=== PATIENT | female | born 1970 | race Caucasian/White ===

== ENCOUNTER → 2018-05-22 | Outpatient (CLI) | payer OTHER | LOC: FIMAGING 10:14 | PROVIDERS: ATTEND Emergency Medicine | DX: K80.20 Calculus of gallbladder without cholecystitis without obstruction (principal); R31.9 Hematuria, unspecified ==

== ENCOUNTER 2018-05-23 23:39 | Inpatient (IN) | payer OTHER ==
--- NOTE | 2018-05-24 00:25 | EDPHY ---
H & P Stated Complaint: bilateral flank pain since 05/20/18 Time Seen by Provider: 05/24/18 00:25 HPI/ROS: HPI CHIEF COMPLAINT: Bilateral low back pain and flank pain since Wednesday. HISTORY OF PRESENT ILLNESS: 48-year-old female, otherwise healthy no significant medical history does not take any daily medications presents emergency room with low back pain. Patient states this started on Wednesday she was talking on the phone sling onset low back pain that radiated into her abdomen. She states started in her back, radiated around to her bilateral lower abdomen. Was rather severe. The abdominal pain has resolved. She decided come the emergency room due to ongoing low back pain. She did go to urgent care and had blood work done and ultrasound. Was told that her ultrasound is unremarkable however was told that it for abdominal pain got worse she needed to present to the emergency room. Her ultrasound has been reviewed. It does show normal kidneys, however gallstones. No evidence of acute cholecystitis on the ultrasound. Patient denies vomiting, fever, denies chest pain or shortness of breath. Currently describes the low back pain is 6/10. Past Medical History: Denies medical history Past Surgical History: Denies surgical history Social History: Denies drugs alcohol tobacco. Family History: Noncontributory ROS REVIEW OF SYSTEMS: 10 Systems were reviewed and negative with the exception of the elements mentioned in the history of present illness. Exam Constitutional appears well nontoxic no acute distress triage nursing summary reviewed, vital signs reviewed, awake/alert. Eyes normal conjunctivae and sclera, EOMI, PERRLA. HENT normal inspection, atraumatic, moist mucus membranes, no epistaxis, neck supple/ no meningismus, no raccoon eyes. Respiratory clear to auscultation bilaterally, normal breath sounds, no respiratory distress, no wheezing. Cardiovascular rate normal, regular rhythm, no murmur, no edema, distal pulses normal. Gastrointestinal soft, non-tender, no rebound, no guarding, normal bowel sounds, no distension, no pulsatile mass. Genitourinary no significant CVA tenderness on exam. Mild posterior bilateral superior posterior iliac crest pain. Musculoskeletal no midline vertebral tenderness, full range of motion, no calf swelling, no tenderness of extremities, no meningismus, good pulses, neurovascularly intact. Skin pink, warm, & dry, no rash, skin atraumatic. Neurologic awake, alert and oriented x 3, AAOx3, moves all 4 extremities equally, motor intact, sensory intact, CN II-XII intact, normal cerebellar, normal vision, normal speech. Psychiatric normal mood/affect. Heme/Lymph/Immune no lymphadenopathy. Differential diagnosis includes but is not limited to and in no particular order : Bowel obstruction, appendicitis, gallbladder disease, diverticulitis, colitis , enteritis, perforated viscus, gastritis, GERD, esophagitis, urinary tract infection, pyelonephritis, kidney stones Medical Decision Making: Plan for this patient IV establishment IV fluid bolus , IV Dilaudid for pain control IV Zofran for nausea, CT scan abdomen pelvis with IV contrast, basic blood work, urinalysis re-evaluate. Re-evaluation: Source: Patient - Personal History LMP (Females 10-55): 1-7 Days Ago Current Tetanus Diphtheria and Acellular Pertussis (TDAP): Unsure - Medical/Surgical History Hx Asthma: No Hx Chronic Respiratory Disease: No Hx Diabetes: No Hx Cardiac Disease: No Hx Renal Disease: No Hx Cirrhosis: No Hx Alcoholism: No Hx HIV/AIDS: No Hx Splenectomy or Spleen Trauma: No - Social History Smoking Status: Never smoked Constitutional: Initial Vital Signs Temperature (C) 36.4 C 05/23/18 23:47 Heart Rate 75 05/23/18 23:47 Respiratory Rate 20 05/23/18 23:47 Blood Pressure 134/77 H 05/23/18 23:47 O2 Sat (%) 96 05/23/18 23:47 O2 Delivery Mode Room Air Allergies/Adverse Reactions: erythromycin lactobionate [From Erythrocin] Allergy (Intermediate, Verified 23:46) Rash Home Medications: Medication Instructions Recorded Acetaminophen [Tylenol 325mg (*)] 325 mg PO DAILY PRN 05/24/18 Ibuprofen [Motrin (*)] 200 mg PO DAILY PRN 05/24/18 diphenhydrAMINE [Benadryl 25 MG 25 mg PO DAILY PRN 05/24/18 (*)] Medical Decision Making - Diagnostics Imaging Results: Imaging Impressions Fluoroscopy 05/24/18 00:00 Impression: 1. Intraoperative fluoroscopy provided for an ERCP and sphincterotomy in this patient with suspected choledocholithiasis. 2. Cholelithiasis. - Data Points Laboratory Results: Laboratory Results 05/24/18 00:29 05/24/18 00:29 Medications Given: Hydromorphone HCl (Dilaudid) 0.2 - 0.4 mg IVP Q1H PRN PRN Reason: Severe pain Stop: 06/03/18 02:08 Last Admin: 05/24/18 18:23 Dose: 0.4 mg Hydromorphone HCl (Dilaudid Government Affairs Specialist) 6 mg IV PRN PRN; Protocol PRN Reason: Pain, Severe Unable To Take Po Stop: 06/03/18 18:13 Last Admin: 05/24/18 18:50 Dose: 6 mg Potassium Chloride/Dextrose/Sod Cl (D5w 1/2 Ns W/ 20 Kcl/L) 1,000 mls @ 100 mls /hr IV CONT CARLOS Stop: 11/20/18 20:59 Last Admin: 05/24/18 21:07 Dose: 1,000 mls Lorazepam (Ativan Injection) 1 - 2 mg IVP Q6H PRN PRN Reason: ANXIETY/INSOMNIA Stop: 11/20/18 18:15 Last Admin: 05/24/18 21:13 Dose: 1 mg Ondansetron HCl (Zofran) 4 mg IVP Q4HRS PRN PRN Reason: Nausea/Vomiting, Can't Take PO Stop: 11/20/18 02:08 Last Admin: 05/24/18 14:53 Dose: 4 mg Discontinued Medications Hydromorphone HCl (Dilaudid) 0.5 mg IVP EDNOW ONE Stop: 05/24/18 00:31 Last Admin: 05/24/18 00:38 Dose: 0.5 mg Hydromorphone HCl (Dilaudid) 0.2 - 0.4 mg IVP Q4HRS PRN PRN Reason: Severe pain Stop: 06/03/18 02:08 Last Admin: 05/24/18 14:55 Dose: 0.2 mg Hydromorphone HCl (Dilaudid) 0.4 mg IVP ONCE ONE Stop: 05/24/18 15:34 Last Admin: 05/24/18 15:49 Dose: 0.4 mg Sodium Chloride (Ns) 1,000 mls @ 100 mls/hr IV CONT CARLOS Stop: 11/20/18 02:14 Last Admin: 05/24/18 03:43 Dose: 1,000 mls Ampicillin Sodium/Sulbactam (Sodium 1.5 gm/ Sodium Chloride) 50 mls @ 200 mls/ hr IV EDNOW ONE PRN Reason: Protocol Stop: 05/24/18 09:32 Last Admin: 05/24/18 10:32 Dose: 50 mls Lactated Ringer's (Lr) 1,000 mls @ 0 mls/hr IV ONCE ONE PRN Reason: Per Protocol Stop: 05/24/18 09:54 Last Admin: 05/24/18 10:32 Dose: 1,000 mls Sodium Chloride (Ns) 1,000 mls @ 125 mls/hr IV CONT CARLOS Stop: 11/20/18 15:44 Last Admin: 05/24/18 15:49 Dose: 1,000 mls Indomethacin (Indocin Rectal) 100 mg MS ONCE ONE Stop: 05/24/18 12:31 Last Admin: 05/24/18 12:43 Dose: 100 mg Indomethacin (Indocin Rectal) 100 mg MS .STK-MED ONE Stop: 05/24/18 12:21 Last Admin: 05/24/18 12:20 Dose: 100 mg Iothalamate Meglumine (Conray) 50 ml IV .STK-MED ONE Stop: 05/24/18 12:16 Last Admin: 05/24/18 12:15 Dose: 50 ml Midazolam HCl (Versed) 2 mg IVP ONCALL ONE Stop: 05/24/18 10:22 Last Admin: 05/24/18 10:43 Dose: 2 mg Ondansetron HCl (Zofran) 4 mg IVP EDNOW ONE Stop: 05/24/18 00:31 Last Admin: 05/24/18 00:37 Dose: 4 mg Departure - Departure Disposition: [facility] Acute Clinical Impression: Abdominal pain Condition: Fair
[2018-05-24] MEDS ORDERED: ONDANSETRON 4 MG/2 ML VIAL IVP ONE (00:30)
[2018-05-24] MEDS ORDERED: HYDROmorphONE/DILAUDID 2 MG/ML INJ IVP ONE ×2 (00:30→15:33)
[2018-05-24] MEDS ORDERED: IOPAMIDOL (ISOVUE-300) 100 ML BTL ONE (00:42)
[2018-05-24 01:17] LABS: PLATELET COUNT 275 10^3/uL (150-400)
[2018-05-24] MEDS ORDERED: ONDANSETRON DISINTEGRATING 4 MG TAB PO PRN (02:09)
[2018-05-24] MEDS ORDERED: ACETAMINOPHEN 500 MG TAB PO PRN ×2 (02:09→11:17)
[2018-05-24] MEDS ORDERED: NS 1,000 ML IV SCH ×2 (02:15→15:45)
--- NOTE | 2018-05-24 03:39 | PDGENHP ---
History and Physical - Chief Complaint Flank pain - History of Present Illness 48 yo F w/ no significant PMHx presents with flank pain. The patient was in usual state of good health until 3 days ago when she developed severe, bilateral flank pain with radiation to her abdomen. She also felt diaphoretic and lightheaded. This discomfort lessened over the next few days but continued to be present throughout the weekend. Then, today, her discomfort increased in severity so she came to the ED. In the ED her laboratory work-up is notable for elevated bilirubin and LFTs. Her ultrasound reveals gallstones and dilated gallbladder and bile ducts. At the time of my evaluation she feels improved after pain medication. She denies fevers and chills. Case discussed with ED physician Dr. Martinez; records reviewed in EMR. History Information - Allergies/Home Medication List Allergies/Adverse Reactions: erythromycin lactobionate [From Erythrocin] Allergy (Intermediate, Verified 23:46) Rash Home Medications: Fluticasone Nasal [Flonase Nasal [place] (RX)] 2 sprays NASAL DAILY 08/28/12 [ Last Taken Unknown] I have personally reviewed and updated: family history, medical history - Past Medical History no pertinent PMH - Surgical History Reports: no pertinent surgical hx - Family History Positive for: cancer (Mother had breast cancer) - Social History Smoking Status: Never smoked Review of Systems Review of Systems: ROS: 10pt was reviewed & negative except for what was stated in HPI & below Physical Exam Physical Exam: Temp Pulse Resp BP Pulse Ox 36.4 C 64 16 129/85 H 93 05/23/18 23:47 05/24/18 01:52 05/24/18 01:52 05/24/18 01:52 05/24/18 01:52 Constitutional: no apparent distress, appears nourished Eyes: PERRL, EOMI Ears, Nose, Mouth, Throat: moist mucous membranes, no oral mucosal ulcers Cardiovascular: regular rate and rhythym, no murmur, rub, or gallop Gastrointestinal: normoactive bowel sounds, soft, non-tender abdomen, No fall' s sign Skin: warm, normal color Musculoskeletal: full muscle strength, no muscle tenderness Neurologic: AAOx3, CN II-XII Intact Psychiatric: interacting appropriately, not anxious Lab Data & Imaging Review 05/24/18 00:29 05/24/18 00:29 WBC 6.71 10^3/uL (3.80-9.50) 05/24/18 00:29 RBC 4.53 10^6/uL (4.18-5.33) 05/24/18 00:29 Hgb 13.6 g/dL (12.6-16.3) 05/24/18 00: Hct 40.7 % (38.0-47.0) 05/24/18 00: MCV 89.8 fL (81.5-99.8) 05/24/18 00:29 MCH 30.0 pg (27.9-34.1) 05/24/18 00: MCHC 33.4 g/dL (32.4-36.7) 05/24/18 00: RDW 11.7 % (11.5-15.2) 05/24/18 00:29 Plt Count 275 10^3/uL (150-400) 05/24/18 00: MPV 9.8 fL (8.7-11.7) 05/24/18 00:29 Neut % (Auto) 70.1 % (39.3-74.2) 05/24/18 00:29 Lymph % (Auto) 14.3 % (15.0-45.0) L 05/24/18 00:29 Kay % (Auto) 7.5 % (4.5-13.0) 05/24/18 00:29 Eos % (Auto) 6.9 % (0.6-7.6) 05/24/18 00: Baso % (Auto) 0.9 % (0.3-1.7) 05/24/18 00:29 Nucleat RBC Rel Count 0.0 % (0.0-0.2) 05/24/18 00:29 Absolute Neuts (auto) 4.71 10^3/uL (1.70-6.50) 05/24/18 00:29 Absolute Lymphs (auto) 0.96 10^3/uL (1.00-3.00) L 05/24/18 00:29 Absolute Monos (auto) 0.50 10^3/uL (0.30-0.80) 05/24/18 00:29 Absolute Eos (auto) 0.46 10^3/uL (0.03-0.40) H 05/24/18 00:29 Absolute Basos (auto) 0.06 10^3/uL (0.02-0.10) 05/24/18 00:29 Absolute Nucleated RBC 0.00 10^3/uL (0-0.01) 05/24/18 00:29 Immature Gran % 0.3 % (0.0-1.1) 05/24/18 00: Immature Gran # 0.02 10^3/uL (0.00-0.10) 05/24/18 00:29 Sodium 138 mEq/L (135-145) 05/24/18 00:29 Potassium 4.1 mEq/L (3.3-5.0) 05/24/18 00:29 Chloride 106 mEq/L (97-110) 05/24/18 00:29 Carbon Dioxide 21 mEq/l (22-31) L 05/24/18 00:29 Anion Gap 11 mEq/L (6-14) 05/24/18 00:29 BUN 14 mg/dL (7-23) 05/24/18 00:29 Creatinine 0.9 mg/dL (0.6-1.0) 05/24/18 00:29 Estimated GFR > 60 05/24/18 00:29 Glucose 106 mg/dL (70-100) H 05/24/18 00:29 Calcium 9.6 mg/dL (8.5-10.4) 05/24/18 00:29 Total Bilirubin 2.8 mg/dL (0.1-1.4) H 05/24/18 00:29 Conjugated Bilirubin 2.2 mg/dL (0.0-0.5) H 05/24/18 00:29 Unconjugated Bilirubin 0.6 mg/dL (0.0-1.1) 05/24/18 00:29 AST 624 IU/L (14-46) H 05/24/18 00:29 ALT 1236 IU/L (9-52) H 05/24/18 00:29 Alkaline Phosphatase 169 IU/L (38-126) H 05/24/18 00:29 Total Protein 7.0 g/dL (6.3-8.2) 05/24/18 00:29 Albumin 4.1 g/dL (3.5-5.0) 05/24/18 00:29 Lipase 108 IU/L (23-300) 05/24/18 00:29 Beta HCG, Qual NEGATIVE 05/24/18 00:29 Urine Color YELLOW 05/24/18 00:00 Urine Appearance CLEAR 05/24/18 00:00 Urine pH 5.0 (5.0-7.5) 05/24/18 00:00 Ur Specific [place] 1.012 (1.002-1.030) 05/24/18 00:00 Urine Protein NEGATIVE (NEGATIVE) 05/24/18 00:00 Urine Ketones 1+ (NEGATIVE) H 05/24/18 00:00 Urine Blood 1+ (NEGATIVE) H 05/24/18 00:00 Urine Nitrate NEGATIVE (NEGATIVE) 05/24/18 00:00 Urine Bilirubin NEGATIVE (NEGATIVE) 05/24/18 00:00 Urine Urobilinogen 4.0 EU (0.2-1.0) H 05/24/18 00:00 Ur Leukocyte Esterase NEGATIVE (NEGATIVE) 05/24/18 00:00 Urine RBC 1-3 /hpf (0-3) 05/24/18 00:00 Urine WBC 1-3 /hpf (0-3) 05/24/18 00:00 Ur Epithelial Cells TRACE /lpf (NONE-1+) 05/24/18 00:00 Urine Bacteria 1+ /hpf (NONE SEEN) H 05/24/18 00:00 Urine Mucus TRACE /lpf (NONE-1+) 05/24/18 00:00 Urine Glucose NEGATIVE (NEGATIVE) 05/24/18 00:00 Imaging Review: prelim CT AP 1. Dilated GB and bile ducts. No discernible CBD stone or panc head mass. Panc duct normal 2. Normal appendix. Constipation. 3. No hydro or renal stones d/w Dr. Martinez at 1:42 am. german eduardo Assessment & Plan Assessment: 48 yo F presents with abdominal pain, abnormal LFTs, and dilated bile ducts concerning for choledocholithiasis. Plan: 1. Suspected choledocholithiasis - Suspected on basis of elevated bilirubin, LFTs, and dilated gallbladder and bile ducts on CT. She has no signs of symptoms of infection currently, making cholecystitis and cholangitis less likely. - Maintain NPO - mIVF, pain control - GI consult in the morning to consider ERCP - Monitor CMP 2. Abnormal LFTs - Likely related to #1; pattern suggestive of biliary obstruction and hepatic inflammation. - Will check acute hep panel, APAP levels Diet - NPO pending GI evaluation Code - Full Ppx - SCDs Dispo - Admit under observation status
[2018-05-24] MEDS: HYDROmorphONE/DILAUDID 2 MG/ML INJ IVP PRN ×4 (03:49→18:23)
[2018-05-24 05:11] LABS: PLATELET COUNT 261 10^3/uL (150-400)
[2018-05-24] MEDS ORDERED: AMPICILLIN/SULBACTAM 1.5 GM in NS 50 ML IV ONE (09:18)
--- NOTE | 2018-05-24 09:20 | SOAPPROG ---
[facility] Progress Note Assessment/Plan: Assessment/Plan: Chart reviewed, pt. not seen yet, formal note to follow. LFTs decreased, but CT shows hyperenhancement in the cbd, so suspect continued cbd stone(s). - ERCP Thanks! 05/24/18 09:19 Objective: Vital Signs Temp Pulse Resp BP Pulse Ox 36.7 C 59 L 14 106/65 95 05/24/18 07:07 05/24/18 07:07 05/24/18 07:07 05/24/18 07:07 05/24/18 07:07 Laboratory Results 05/24/18 04:44 05/24/18 04:44 ICD10 Worksheet Patient Problems: Problems Problem Status Onset Abdominal pain Acute
[2018-05-24] MEDS ORDERED: D5W 1/2 NS W/ 20 KCl/L 1,000 ML IV SCH (09:30)
[2018-05-24] MEDS ORDERED: LR 1,000 ML IV ONE (09:53)
[2018-05-24] MEDS ORDERED: GLUCAGON HCL 1 MG VIAL ONE (10:07)
[2018-05-24] MEDS ORDERED: IOTHALAMATE MEG (CONRAY) 50 ML VIAL IV ONE ×2 (10:08→12:15)
[2018-05-24] MEDS ORDERED: MIDAZOLAM 2 MG/2 ML VIAL IVP ONE (10:21)
--- NOTE | 2018-05-24 10:21 | PDANEPAE ---
ANE History of Present Illness R flank pain for ERCP ANE Past Medical History - Cardiovascular History Hx Hypertension: No Hx Arrhythmias: No Hx Chest Pain: No Hx Coronary Artery / Peripheral Vascular Disease: No Hx CHF / Valvular Disease: No Hx Palpitations: No - Pulmonary History Hx COPD: No Hx Asthma/Reactive Airway Disease: No Hx Recent Upper Respiratory Infection: No Hx Oxygen in Use at Home: No Hx Sleep Apnea: No Sleep Apnea Screening Result - Last Documented: Negative - Endocrine History Hx Diabetes: No Hypothyroid: No Hyperthyroid: No Obesity: no - Chronic Pain History Chronic Pain: No ANE Review of Systems Review of systems is: negative Review of Systems: - Exercise capacity Exercise capacity: >=4 METS ANE Patient History - Allergies Allergies/Adverse Reactions: erythromycin lactobionate [From Erythrocin] Allergy (Intermediate, Verified 23:46) Rash - Home Medications Home medications: home medication list seen and reviewed Home Medications: Acetaminophen [Tylenol 325mg (*)] 325 mg PO DAILY PRN 05/24/18 [Last Taken Unknown] Ibuprofen [Motrin (*)] 200 mg PO DAILY PRN 05/24/18 [Last Taken Unknown] diphenhydrAMINE [Benadryl 25 MG (*)] 25 mg PO DAILY PRN 05/24/18 [Last Taken Unknown] - NPO status NPO Since - Liquids (Date): 05/24/18 NPO Since - Liquids (Time): 03:00 NPO Since - Solids (Date): 05/23/18 NPO Since - Solids (Time): 20:00 - Anes Hx Anes Hx: no prior problems - Smoking Hx Smoking Status: Never smoked ANE Labs/Vital Signs - Labs Result Diagrams: 05/24/18 04:44 05/24/18 04:44 - Vital Signs Blood Pressure: 144/90 Heart Rate: 70 Respiratory Rate: 18 O2 Sat (%): 97 Height: 170.18 cm Weight: 63.5 kg ANE Physical Exam - Airway Neck exam: FROM Mallampati Score: Class 1 Mouth exam: normal dental/mouth exam - Pulmonary Pulmonary: no respiratory distress - Cardiovascular Cardiovascular: regular rate and rhythym - ASA Status ASA Status: I ANE Anesthesia Plan Anesthesia Plan: general endotracheal anesthesia
[2018-05-24] MEDS ORDERED: fentaNYL 100 MCG/2 ML INJ ONE (10:31)
[2018-05-24] MEDS ORDERED: PROPOFOL 200 MG/20 ML VIAL ONE (10:32)
[2018-05-24] MEDS ORDERED: LIDOCAINE 2% 100 MG/5 ML SYR ONE (10:41)
[2018-05-24] MEDS ORDERED: ONDANSETRON 4 MG/2 ML VIAL ONE (10:41)
[2018-05-24] MEDS ORDERED: DEXAMETHASONE 4 MG/ML VIAL ONE (10:41)
[2018-05-24] MEDS ORDERED: ROCURONIUM 50 MG/5 ML VIAL ONE (10:41)
[2018-05-24] MEDS ORDERED: SUGAMMADEX SODIUM 200 MG/2 ML VIAL IVP ONE (10:41)
--- NOTE | 2018-05-24 11:00 | HOSPPROG ---
Hospitalist Progress Note Assessment/Plan: 48 yo F presents with abdominal pain, abnormal LFTs, and dilated bile ducts concerning for choledocholithiasis. Plan: 1. Suspected choledocholithiasis - Suspected on basis of elevated bilirubin, LFTs, and dilated gallbladder and bile ducts on CT. She has no signs of symptoms of infection currently, making cholecystitis and cholangitis less likely. - Maintain NPO - mIVF, pain control - GI to perform ERCP this AM - Monitor CMP 2. Abnormal LFTs - Likely related to #1; pattern suggestive of biliary obstruction and hepatic inflammation. - Will check acute hep panel, APAP levels Diet - NPO pending GI evaluation Code - Full Ppx - SCDs Dispo - Admit under observation status Subjective: Patient reports feeling very well s/p ERCP, denies abdominal pain Objective: Vital Signs Temp Pulse Resp BP Pulse Ox 36.8 C 70 18 144/90 H 97 05/24/18 10:07 05/24/18 10:26 05/24/18 10:26 05/24/18 10:26 05/24/18 10:26 Laboratory Results 05/24/18 04:44 05/24/18 04:44 - Physical Exam Constitutional: no apparent distress Eyes: PERRL Ears, Nose, Mouth, Throat: moist mucous membranes Cardiovascular: regular rate and rhythym Respiratory: clear to auscultation Gastrointestinal: soft, non-tender abdomen Genitourinary: no bladder tenderness Skin: warm Neurologic: AAOx3 Psychiatric: interacting appropriately ICD10 Worksheet Patient Problems: Problems Problem Status Onset Abdominal pain Acute
[2018-05-24] MEDS ORDERED: LABETALOL HCL 5 MG/ML 20 ML MDV IVP PRN (11:17)
[2018-05-24] MEDS ORDERED: oxyCODONE IR 5 MG TAB PO PRN (11:17)
[2018-05-24] MEDS ORDERED: ONDANSETRON 4 MG/2 ML VIAL IVP PRN (11:17)
[2018-05-24] MEDS ORDERED: HYDROCODONE/APAP 5/325 TAB PO PRN (11:17)
[2018-05-24] MEDS ORDERED: PROMETHAZINE HCL 25 MG/ML INJ IVP PRN (11:17)
[2018-05-24] MEDS ORDERED: LR 500 ML IV PRN (11:17)
[2018-05-24] MEDS ORDERED: NALOXONE HCL 0.4 MG/ML INJ IVP PRN ×2 (11:17→18:14)
[2018-05-24] MEDS ORDERED: ALBUTEROL 3 ML DEYVIAL IH PRN (11:17)
[2018-05-24] MEDS ORDERED: HYDROmorphONE/DILAUDID 2 MG/ML INJ IVP PRN (11:17)
[2018-05-24] MEDS ORDERED: fentaNYL 100 MCG/2 ML INJ IVP PRN (11:17)
--- NOTE | 2018-05-24 11:17 | POSTANESTH ---
Post Anesthetic Evaluation Cardiovascular Status: Normal, Stable Respiratory Status: Normal, Stable Level of Consciousness/Mental Status: Can Participate in Eval, Alert and Oriented Pain Control: Adequate, Prn Tx Ordered Nausea/Vomiting Control: Adequate, Prn Tx Ordered Complications Possibly Related to Anesthesia: None Noted
--- NOTE | 2018-05-24 11:25 | GCON ---
GI INPATIENT CONSULTATION DATE OF CONSULTATION: 05/24/2018 REFERRING PHYSICIAN: Xavier Espinoza MD REASON CONSULTATION REQUESTED: I was kindly requested to see Ashley by Dr. Xavier Espinoza in consultation for a chief complaint of abdominal pain. HISTORY OF PRESENT ILLNESS: She is a 48-year-old white female who presented with acute flank pain. This began about 3 days ago, severe in nature, bilateral with some radiation to her abdomen. With this, she felt diaphoretic and lightheaded. The pain lessened somewhat over the last several days, but then reoccurred, and she presented to the emergency department and was admitted. She denies fever, chills. She denies weight loss. She denies melena. PAST MEDICAL HISTORY: Otherwise unremarkable. ALLERGIES: Erythromycin. MEDICATIONS: 1. Outpatient medications include Flonase nasal spray. 2. Inpatient medications include intravenous fluids. SOCIAL HISTORY: She is . Her 's name is Roger, cell phone number is [phone]. FAMILY HISTORY: Negative for similar abdominal pain. REVIEW OF SYSTEMS: Positive pertinent review of systems as per my HPI. Otherwise, complete review of systems is negative. PHYSICAL EXAM: CONSTITUTIONAL: Nontoxic-appearing, pleasant woman. VITAL SIGNS: Stable. SKIN: Warm, dry. EYES: Pupils are equal, round and reactive to light and accommodation. EARS, NOSE, MOUTH, AND THROAT: Oropharynx without masses, moist mucosa. CARDIOVASCULAR: Normal S2, normal PMI. RESPIRATORY: Lungs are clear to auscultation and percussion anteriorly. ABDOMEN: Some normal bowel sounds, soft. NEUROLOGIC: Grossly nonfocal, cranial nerves grossly intact. PSYCHIATRIC: Orientation, insight appropriate. MUSCULOSKELETAL: Strength grossly normal throughout, normal station. DATA REVIEWED: Laboratories include a normal CBC. Urinalysis negative. Total bilirubin 2.8, now 1.6. AST, ALT decreased to 493 and 1029. Alkaline phosphatase decreased to 147. Beta HCG negative. Normal lipase. CT scan with a suggestion of hyper enhancement in the common bile duct, which could represent CBD stone. ASSESSMENT: Suspect choledocholithiasis, presenting somewhat atypically with flank pain. Although her liver tests are decreased today versus yesterday, they are still quite high, with a 3-day on and off description of symptoms, and finally, a CT scan which is suggestive of a continued CBD stone. PLAN: 1. ERCP. Further management is pending the above. 2. Will change her intravenous fluids to D5 1/2-normal saline with 20 mEq of potassium per liter bag to run at 100 mL an hour. 3. Unasyn x1. 4. Further management is pending the above. Thank you for allowing me to help in the care of this patient. /[id number]/MODL MTDD
[2018-05-24] MEDS ORDERED: INDOMETHACIN 50 MG SUPP PR ONE ×2 (12:20→12:30)
--- NOTE | 2018-05-24 12:43 | GIREPORT ---
[facility] - Endoscopy Department Patient Name: Ashley Novak Procedure Date: 05/24/2018 11:00 AM Patient Type: Inpatient Attending MD/ ER Physician: Fantasma Meza MD Procedure: ERCP Indications: Note dictated, consult appreciated. Suspected bile duct stone(s). Providers: Fantasma Meza MD, FACG Referring MD: [facility] Hospitalist service Medicines: Sedation Administered by an Anesthesia Professional, Indomethacin 100 m g LA Complications: No immediate complications. Description of Procedure: After obtaining informed consent, the scope was passed under direct vis ion. Throughout the procedure, the patient's blood pressure, pulse, and oxyg en saturations were monitored continuously. The Duodenalscope was introduc ed through the mouth, and advanced to the duodenum and used to cannulate t he bile duct. Findings: Grossly nl stomach, duodenum, ampulla. Partial pancreaticogram normal. Cholangiogram reveals a 11 mm cbd. One cbd stone, rectangular, 1 cm in size, seen. Multiple gallstones in the gallbladder. A 13 mm biliary sphincterotomy was made with a sphincterotome. There wa s no post-sphincterotomy bleeding. Unable to remove with 12 mm, 13.5 mm or 1 5 mm balloon. "Crushed" with a basket, and then pieces removed with balloon. Final balloon occlusive cholangiogram normal. Estimated Blood Loss: none. Post Op Diagnosis: - Moderately large cbd stone, as above. "Crushed," and all pieces remov ed. Recommendation: - feed - buffcap IV - recommend lap debbie I will sign off; we will arrange repeat LFTs in about one month, to ruth e sure they normalize, as I suspect. Else, please call if we can be of fu rther help [phone]). Thank you for allowing me to help in the management of this patient. Attending Participation: I personally performed the entire procedure. Susana Meek MD Fantasma Meza MD 05/24/2018 12:43:11 PM This report has been signed electronicallyPeter MD Susana Number of Addenda: 0 Note Initiated On: 05/24/2018 11:00 AM [email or web address]
--- NOTE | 2018-05-24 14:34 | ASMTCMCOM ---
CM Note CM Note Notes: Pt is a 48 y/o female admitted for flank pain. Pt had a choledocholithiasis. Pt will most likely d/c independent when medically stable. No therapies ordered at this time. CM available for changes. Plan: Independent Date Signed: 05/24/2018 02:33 PM Electronically Signed By:CHRISSY Devine
[2018-05-24] MEDS: ONDANSETRON 4 MG/2 ML VIAL IVP PRN (14:53)
[2018-05-24] MEDS: HYDROmorphONE/DILAUDID 6 MG/30 ML PCA IV PRN (18:50)
--- NOTE | 2018-05-24 20:51 | SOAPPROG ---
[facility] Progress Note Assessment/Plan: Assessment/Plan: PostERCP pancreatitis, with a lipase around 6K. With only at this level, suspect should hopefully resolve quickly. 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 Recommend surgical consult, for eventual lap debbie. Case d/w hospitalist, pt. and her . 05/24/18 20:49 Objective: Vital Signs Temp Pulse Resp BP Pulse Ox 36.4 C 92 16 106/68 92 05/24/18 20:35 05/24/18 20:35 05/24/18 20:35 05/24/18 20:35 05/24/18 20:35 Laboratory Results 05/24/18 04:44 05/24/18 04:44 05/23/18 05/24/18 05/25/18 05:59 05:59 05:59 Intake Total 120 Output Total 5 Balance 115 ICD10 Worksheet Patient Problems: Problems Problem Status Onset Abdominal pain Acute
[2018-05-24] MEDS: D5W 1/2 NS W/ 20 KCl/L 1,000 ML IV SCH (21:07)
[2018-05-24] MEDS: LORazepam 2 MG/ML INJ IVP PRN (21:13)
[2018-05-25] MEDS: HYDROmorphONE/DILAUDID 6 MG/30 ML PCA IV PRN ×3 (03:26→18:34)
[2018-05-25] MEDS: ONDANSETRON 4 MG/2 ML VIAL IVP PRN ×3 (03:32→16:53)
[2018-05-25] MEDS: D5W 1/2 NS W/ 20 KCl/L 1,000 ML IV SCH ×2 (07:24→20:04)
--- NOTE | 2018-05-25 10:04 | SOAPPROG ---
SOAP Progress Note Assessment/Plan: Assessment/Plan: PostERCP pancreatitis. Lipase higher today, but suspect may be "trailing behind ," as clinically pt. doing somewhat better. - cont. NPO except for today; suspect we can begin clears tomorrow - recheck lipase in AM - Recommend surgical consult today, for eventual lap debbie. 05/25/18 10:02 Subjective: cc: pancreatitis Pain somewhat better today; pain meds helps. Ativan helped with sleep. No rigors, chills, sweats, vomiting. Objective: Vital Signs Temp Pulse Resp BP Pulse Ox 36.8 C 112 H 22 H 112/74 92 05/25/18 09:11 05/25/18 09:11 05/25/18 09:11 05/25/18 09:11 05/25/18 09:11 Laboratory Results 05/24/18 04:44 05/25/18 04:33 05/24/18 05/25/18 05/26/18 05:59 05:59 05:59 Intake Total 120 Output Total 5 Balance 115 Lipase increased to 13K Physical Exam - Physical Exam General Appearance: WD/WN, alert, no apparent distress EENT: PERRL/EOMI, normal ENT inspection, pharynx normal, TMs normal Neck: non-tender, full range of motion, supple, normal inspection Respiratory: chest non-tender, lungs clear, normal breath sounds Cardiac/Chest: normal peripheral pulses, regular rate, rhythm Peripheral Pulses: 2+: carotid (R), carotid (L), femoral (R), femoral (L), dorsalis-pedis (R), dorsalis-pedis (L) Abdomen: normal bowel sounds, soft, No non-tender (moderate epigastric tenderness.) Pelvic Exam: deferred Rectal: deferred Back: Normal inspection Skin: normal color, warm/dry Lymphatic: no adenopathy Extremities: normal range of motion, non-tender, normal inspection, normal capillary refill Neuro/Psych: no motor/sensory deficits, alert, normal mood/affect, oriented x 3 ICD10 Worksheet Patient Problems: Problems Problem Status Onset Abdominal pain Acute
--- NOTE | 2018-05-25 10:24 | HOSPPROG ---
Hospitalist Progress Note Assessment/Plan: 48 yo F presents with abdominal pain, abnormal LFTs, and dilated bile ducts concerning for choledocholithiasis. Plan: 1. Choledocholithiasis - S/p ERCP by GI on 05/25 with removal of large gallstone - LFTs continue to trend downwards - Consulting surgery today for lap-debbie evaluation - Continue to monitor CMP 2. Post-ERCP Pancreatitis - Patient had acute onset of severe abdominal pain, nausea after ERCP yesterday - Initial lipase after ERCP 6,000, trended up to 13,200 this AM - Continue IVF, IV pain control - Discussed case with Dr. Meza after procedure yesterday, he added SHINGLER for pain - Continue to monitor lipase 3. Transaminitis - 2/2 to cholelithiasis - Management as above Diet - NPO Code - Full Ppx - SCDs Dispo - Pending clinical course Subjective: Patient reports moderate pain this morning in abdomen Objective: Vital Signs Temp Pulse Resp BP Pulse Ox 36.8 C 112 H 22 H 112/74 92 05/25/18 09:11 05/25/18 09:11 05/25/18 09:11 05/25/18 09:11 05/25/18 09:11 Laboratory Results 05/24/18 04:44 05/25/18 04:33 05/24/18 05/25/18 05/26/18 05:59 05:59 05:59 Intake Total 120 Output Total 5 Balance 115 - Physical Exam Constitutional: uncomfortable Eyes: PERRL Ears, Nose, Mouth, Throat: moist mucous membranes Cardiovascular: tachycardia Respiratory: no respiratory distress, clear to auscultation Gastrointestinal: tenderness, No guarding, No rebound, No distension Genitourinary: no bladder tenderness Skin: warm Neurologic: AAOx3 Psychiatric: interacting appropriately ICD10 Worksheet Patient Problems: Problems Problem Status Onset Abdominal pain Acute
--- NOTE | 2018-05-25 19:46 | SOAPPROG ---
CLARISSA Progress Note Assessment/Plan: Assessment: FEELING BETTER AFTER COMMON DUCT STONE REMOVAL BUT NOW WITH BOWEL PANCREATITIS ABDOMEN SOFT/NONICTERIC/CHEST CLEAR RISKS AND OPTIONS FULLY DISCUSSED Plan: LAP CHOLY ON WEDNESDAY OF HER NUMBERS ARE IMPROVING 05/25/18 19:45 Objective: Vital Signs Temp Pulse Resp BP Pulse Ox 37.0 C 93 16 123/81 H 94 05/25/18 19:03 05/25/18 19:03 05/25/18 19:03 05/25/18 19:03 05/25/18 19:03 Laboratory Results 05/24/18 04:44 05/25/18 04:33 05/24/18 05/25/18 05/26/18 05:59 05:59 05:59 Intake Total 120 990 Output Total 5 Balance 115 990 ICD10 Worksheet Patient Problems: Problems Problem Status Onset Abdominal pain Acute
--- NOTE | 2018-05-25 20:25 | PDMN ---
Medical Necessity Medical necessity: Change to inpt as of 05/25/18 @ 11:21. Pt meets inpt criteria per MD order and MCG M-250, Pancreatitis, 2 days. 48 y/o admitted w/ choledocholithiasis, s/p ERCP w/removal of large gall stone, post-ERCP pancreatitis w/acute onset of severe abdominal pain/nausea and lipase elevating to 13,200. IV Dilaudid CARE ANALYST for pain, IVF, lap debbie pending. Est LOS>2MN for management of above.
[2018-05-25] MEDS: LORazepam 2 MG/ML INJ IVP PRN (21:21)
[2018-05-26] MEDS: D5W 1/2 NS W/ 20 KCl/L 1,000 ML IV SCH (05:59)
[2018-05-26] MEDS: HYDROmorphONE/DILAUDID 6 MG/30 ML PCA IV PRN ×2 (06:00→17:56)
--- NOTE | 2018-05-26 09:36 | SOAPPROG ---
SOAP Progress Note Assessment/Plan: Assessment/Plan: PostERCP pancreatitis. Lipase improved, and clinically better. Still quite tender. - clears - buffcap IV - recommend switching to p.o. pain meds tomorrow; as per hospitalist. - recheck lipase in AM 05/26/18 09:34 Subjective: cc: pancreatitis Pain better. Able to move around more. Not using dilaudid GATE SERVICES SUPERVISOR as much. No rigors, chills, sweats. Objective: Vital Signs Temp Pulse Resp BP Pulse Ox 37.0 C 106 H 16 113/82 H 90 L 05/26/18 07:44 05/26/18 07:44 05/26/18 07:44 05/26/18 07:44 05/26/18 07:44 Laboratory Results 05/26/18 04:34 05/26/18 04:34 05/25/18 05/26/18 05/27/18 05:59 05:59 05:59 Intake Total 1965 Balance 1965 lipase 8K Physical Exam - Physical Exam General Appearance: WD/WN, alert, no apparent distress EENT: PERRL/EOMI, normal ENT inspection, pharynx normal, TMs normal Neck: non-tender, full range of motion, supple, normal inspection Respiratory: chest non-tender, lungs clear, normal breath sounds Cardiac/Chest: normal peripheral pulses, regular rate, rhythm Peripheral Pulses: 2+: carotid (R), carotid (L), femoral (R), femoral (L), dorsalis-pedis (R), dorsalis-pedis (L) Abdomen: normal bowel sounds, soft, No non-tender (moderate epigastric tenderness) Pelvic Exam: deferred Rectal: deferred Back: Normal inspection Skin: normal color, warm/dry Lymphatic: no adenopathy Extremities: normal range of motion, non-tender, normal inspection, normal capillary refill Neuro/Psych: no motor/sensory deficits, alert, normal mood/affect, oriented x 3 ICD10 Worksheet Patient Problems: Problems Problem Status Onset Abdominal pain Acute
--- NOTE | 2018-05-26 10:29 | SOAPPROG ---
SOAP Progress Note Assessment/Plan: Assessment/plan: 48 y/o F admitted with choledocholithiasis S/p ERCP with stone retrieval Pancreatitis after ERCP. Lipase trending down. LFTs trending down. Plan for lap debbie tomorrow afternoon. Can postpone if pt wishes. S: Still having pain, but improved with change director. Feels weak, unsure if she wants to undergo surgery tomorrow. O: Alert Afebrile RRR No increased WOB Abdomen soft, ttp 05/26/18 10:26 Objective: Vital Signs Temp Pulse Resp BP Pulse Ox 37.0 C 106 H 16 113/82 H 90 L 05/26/18 07:44 05/26/18 07:44 05/26/18 07:44 05/26/18 07:44 05/26/18 07:44 Laboratory Results 05/26/18 04:34 05/26/18 04:34 05/25/18 05/26/18 05/27/18 05:59 05:59 05:59 Intake Total 1965 Balance 1965 ICD10 Worksheet Patient Problems: Problems Problem Status Onset Abdominal pain Acute
--- NOTE | 2018-05-26 12:05 | HOSPPROG ---
Hospitalist Progress Note Assessment/Plan: 48 yo F presents with abdominal pain, abnormal LFTs, and dilated bile ducts concerning for choledocholithiasis. Plan: 1. Choledocholithiasis - S/p ERCP by GI on 05/25 with removal of large gallstone - LFTs continue to trend downwards - Consulted surgery for lap-debbie evaluation, plan for tomorrow afternoon, however patient still deciding if she would like to proceed as IP vs. OP - Continue to monitor CMP 2. Post-ERCP Pancreatitis - Patient had acute onset of severe abdominal pain, nausea after ERCP yesterday - Initial lipase after ERCP 6,000, trended up to 13,200 yesterday, 8,123 today - D/c IVF, IV pain control- continue CONTACT CLERK for today, transition to IVP/PO tomorrow - Continue to monitor lipase qAM - Advance diet to clears as tolerated 3. Transaminitis - 2/2 to cholelithiasis - Management as above Diet - CLD, advance as tolerated Code - Full Ppx - SCDs Dispo - Pending clinical course, patient deciding if she should pursue lap- debbie IP vs. OP, states she feels weak and unsure if she can tolerate Subjective: Patient reports abdominal pain is improving Objective: Vital Signs Temp Pulse Resp BP Pulse Ox 37.7 C 106 H 16 117/71 93 05/26/18 11:20 05/26/18 11:20 05/26/18 11:20 05/26/18 11:20 05/26/18 11:20 Laboratory Results 05/26/18 04:34 05/26/18 04:34 05/25/18 05/26/18 05/27/18 05:59 05:59 05:59 Intake Total 1965 Balance 1964 - Physical Exam Constitutional: no apparent distress Eyes: PERRL Ears, Nose, Mouth, Throat: moist mucous membranes Cardiovascular: regular rate and rhythym Respiratory: no respiratory distress Gastrointestinal: tenderness Skin: warm Musculoskeletal: full muscle strength Neurologic: AAOx3 Psychiatric: interacting appropriately ICD10 Worksheet Patient Problems: Problems Problem Status Onset Abdominal pain Acute
[2018-05-26] MEDS: ONDANSETRON 4 MG/2 ML VIAL IVP PRN (14:32)
[2018-05-26] MEDS: IBUPROFEN 600 MG TAB PO PRN (19:43)
[2018-05-26] MEDS: LORazepam 2 MG/ML INJ IVP PRN (23:23)
[2018-05-27] MEDS: ONDANSETRON 4 MG/2 ML VIAL IVP PRN ×2 (04:38→11:09)
[2018-05-27] MEDS: D5W 1/2 NS W/ 20 KCl/L 1,000 ML IV SCH ×2 (05:41→17:43)
--- NOTE | 2018-05-27 09:22 | SOAPPROG ---
CLARISSA Progress Note Assessment/Plan: Assessment/plan: 48 y/o F admitted with choledocholithiasis S/p ERCP with stone retrieval Pancreatitis after ERCP. Lipase trending down. LFTs trending down. Plan for lap debbie tomorrow afternoon. Can postpone if pt wishes. S: Still having pain, but improved with recruiting and selection consultant. Feels weak, unsure if she wants to undergo surgery tomorrow. O: Alert Afebrile RRR No increased WOB Abdomen soft, ttp 05/26/18 10:26 Subjective: Still having significant abdominal and back pain, although lipase is much improved. Does not want surgery today. Dr. Nguyen will be out of town starting Wednesday afternoon. Can do surgery tomorrow or Wednesday morning, or pt can follow up with us as an outpt. Objective: Vital Signs Temp Pulse Resp BP Pulse Ox 36.6 C 103 H 22 H 118/74 95 05/27/18 07:37 05/27/18 07:37 05/27/18 07:37 05/27/18 07:37 05/27/18 07:37 Laboratory Results 05/26/18 04:34 05/26/18 04:34 05/26/18 05/27/18 05/28/18 05:59 05:59 05:59 Intake Total 1965 Balance 1965 ICD10 Worksheet Patient Problems: Problems Problem Status Onset Abdominal pain Acute
[2018-05-27] MEDS ORDERED: cefOXitin SODIUM 2 GM in NS 100 ML IV ONE (11:00)
--- NOTE | 2018-05-27 12:42 | ASMTCMCOM ---
CM Note CM Note Notes: Pt continues with abdominal pain, she had an ERCP and gallstone removal. She then developed pancreatitis, needs lap debbie but pt still unsure whether to do it here or as outpt. Pt is otherwise independent, will dc home w/support of . CM available for any changes. DC Plan: Indepedent Date Signed: 05/27/2018 12:40 PM Electronically Signed By:Munira Moctezuma RN
[2018-05-27] MEDS ORDERED: ZOLPIDEM TARTRATE 5 MG TAB PO PRN (12:46)
--- NOTE | 2018-05-27 12:55 | SOAPPROG ---
SOAP Progress Note Assessment/Plan: Assessment/Plan: 1. PostERCP pancreatitis. Lipase improving, but clinically, pt. still in the midst of moderately-severe pancreatitis, with continued tenderness to light palpation, back pain. 2. Development of ileus, from the above, which again shows continued moderately -severe disease. 3. Some muscular back pain, after a "twist" yesterday getting out of bed 4. Bad reaction to ativan, with hallucinations, etc. - revert back to more conservation care: NPO except, IV fluids - time; suspect she will be in the hospital at least until Wednesday or Wednesday - no lap debbie, until pancreatitis totally resolved (suspect will be a separate hospitalization, in several weeks or a month, which should be safe, as her cbd is now cleared) - d/c ativan > she requests ambien prn insomnia - better pain control with dilaudid TALLIER; as per hospitalist - d/c O2 (bothers her), unless absolutely necessary - increase prn zofran - decisions regarding her "pulled back," such as muscle relaxers, as per hospitalist 05/27/18 12:49 Subjective: cc: pancreatitis Pain continues, no better, and includes the back. Abdomen distended, with decreased passage gas, no b.m.s. Ativan made her too "loopy." Some musculoskeletal back pain, after "twisting" it getting out of bed yesterday. Nausea (most likely related to ileus). O2 mask bothers her; nasal cannula made her nose "inflammed." Objective: Vital Signs Temp Pulse Resp BP Pulse Ox 37.3 C 106 H 22 H 106/75 97 05/27/18 11:35 05/27/18 11:35 05/27/18 11:35 05/27/18 11:35 05/27/18 11:35 Laboratory Results 05/26/18 04:34 05/26/18 04:34 05/26/18 05/27/18 05/28/18 05:59 05:59 05:59 Intake Total 1964 1657 Balance 1964 1656 lipase 1800 Physical Exam - Physical Exam General Appearance: WD/WN, alert, no apparent distress EENT: PERRL/EOMI, normal ENT inspection, pharynx normal, TMs normal Neck: non-tender, full range of motion, supple, normal inspection Respiratory: chest non-tender, lungs clear, normal breath sounds Cardiac/Chest: normal peripheral pulses, regular rate, rhythm Peripheral Pulses: 2+: carotid (R), carotid (L), femoral (R), femoral (L), dorsalis-pedis (R), dorsalis-pedis (L) Abdomen: distended, No normal bowel sounds, No non-tender (moderate severe epigastric tenderness) Pelvic Exam: deferred Rectal: deferred Back: Normal inspection Skin: normal color, warm/dry Lymphatic: no adenopathy Extremities: normal range of motion, non-tender, normal inspection, normal capillary refill Neuro/Psych: no motor/sensory deficits, alert, normal mood/affect, oriented x 3 ICD10 Worksheet Patient Problems: Problems Problem Status Onset Abdominal pain Acute
--- NOTE | 2018-05-27 15:24 | HOSPPROG ---
Hospitalist Progress Note Assessment/Plan: DIAGNOSES: * acute postprocedural pancreatitis after ERCP * choledocholithiasis with a large stone removed by ERCP * pain management issues PLANS: * Continue IV hydration * Continue pain management, currently doing well with BATH ATTENDANT pump * Antiemetics as needed * Follow for any signs of fever or other complications Overall she is improving, however she remains with moderately severe pain requiring BATH ATTENDANT pump, tachycardia, slowly resolving blood test values. Would continue symptomatic treatment and supportive care at this time. At this point I would side with Dr. Meza in advising probable delay before cholecystectomy. SUBJECTIVE: Patient states she is finally feeling better relief of pain currently on BATH ATTENDANT pump Did get some sleep last night and during the day today No nausea at this moment, no chills OBJECTIVE Vitals reviewed: Remains somewhat tachycardic, otherwise Stable without fever Exam: Somewhat sedated with her BATH ATTENDANT and was actually a little bit hard to arouse but she does arouse and talk to me skin warm dry color ok resps not labored but appear adequate, with adequate oxygenation lungs clear BSs heart regular abd remains tender and a bit distended, bowel sounds present limbs warm, no edema iv site ok Lab data: Lipase is improved at 1816 today Objective: Vital Signs Temp Pulse Resp BP Pulse Ox 37.3 C 106 H 22 H 106/75 97 05/27/18 11:35 05/27/18 11:35 05/27/18 11:35 05/27/18 11:35 05/27/18 11:35 Laboratory Results 05/26/18 04:34 05/26/18 04:34 05/26/18 05/27/18 05/28/18 06:59 06:59 06:59 Intake Total 1964 1657 Balance 1965 1657 ICD10 Worksheet Patient Problems: Problems Problem Status Onset Abdominal pain Acute
[2018-05-27] MEDS: HYDROmorphONE/DILAUDID 6 MG/30 ML PCA IV PRN (17:25)
[2018-05-27] MEDS: CYCLOBENZAPRINE 10 MG TAB PO SCH ×2 (22:56→22:57)
[2018-05-27] MEDS: ZOLPIDEM TARTRATE 5 MG TAB PO PRN (22:56)
[2018-05-28] MEDS: CYCLOBENZAPRINE 10 MG TAB PO SCH ×4 (00:49→20:59)
[2018-05-28] MEDS: D5W 1/2 NS W/ 20 KCl/L 1,000 ML IV SCH ×2 (04:57→16:32)
[2018-05-28 04:59] LABS: PLATELET COUNT 206 10^3/uL (150-400)
[2018-05-28] MEDS: HYDROmorphONE/DILAUDID 6 MG/30 ML PCA IV PRN ×3 (05:05→22:20)
[2018-05-28] MEDS: ONDANSETRON 4 MG/2 ML VIAL IVP PRN ×2 (10:23→20:59)
--- NOTE | 2018-05-28 11:09 | SOAPPROG ---
CLARISSA Progress Note Assessment/Plan: Assessment:Plan: 1) pancreatitis - improving but still with pain and decreased bs/ileus, lipase down, using SENIOR LANDSCAPE ARCHITECT for pain control 2) RUQ pain - check sonogram, start abx/Invanz for possible cholecystitis, if sonogram looks fine, then no surgery today 3) Pulm - egophony in RLL - CXR PA and Lat, and incentive spirometer 4) pain - SENIOR LANDSCAPE ARCHITECT - unclear if her RUQ pain is from her pancreatitis or her GB discussed with Doctors Hayes Meza and Patrick will follow 05/28/18 11:11 Subjective: CC- pancreatitis - abdo pain, RUQ pain, ileus, egophony and new cough pt says some of her abdo pain is better but more now in RUQ new cough - non productive Objective: Vital Signs Temp Pulse Resp BP Pulse Ox 36.9 C 108 H 16 111/69 86 L 05/28/18 07:44 05/28/18 07:44 05/28/18 07:44 05/28/18 07:44 05/28/18 07:44 Laboratory Results 05/28/18 04:39 05/28/18 04:39 05/27/18 05/28/18 05/29/18 05:59 05:59 05:59 Intake Total 1956 Balance 1956 A+Ox3 CTA left, egophony right base S1S2 tachy very decreased BS, distended but soft, tenderness RUQ >> epi > left sided, + guarding RUQ Laboratory Tests 05/25/18 05/26/18 05/26/18 04:33 04:34 04:34 WBC 9.44 AST 224 H 92 H ALT 749 H 469 H Lipase 27535 H 8123 H 05/27/18 05/28/18 05/28/18 04:30 04:39 04:39 WBC 12.18 H AST 28 ALT 207 H Lipase 1816 H 482 H ICD10 Worksheet Patient Problems: Problems Problem Status Onset Abdominal pain Acute
[2018-05-28] MEDS: ERTAPENEM 1 GM in NS 100 ML IV SCH (12:19)
--- NOTE | 2018-05-28 12:46 | SOAPPROG ---
CLARISSA Progress Note Assessment/Plan: Assessment: FEELING BETTER AFTER COMMON DUCT STONE REMOVAL BUT NOW WITH BOWEL PANCREATITIS ABDOMEN SOFT/NONICTERIC/CHEST CLEAR RISKS AND OPTIONS FULLY DISCUSSED Plan: LAP CHOLY ON WEDNESDAY OF HER NUMBERS ARE IMPROVING 05/25/18 19:45 05/28/18 12:43 AFEBRILE BUT ACCESS SERVICES LIBRARIAN IN THE RIGHT UPPER QUADRANT/OVERALL IMPROVED/ NONICTERIC/DECREASED BREATH SOUNDS IN THE RIGHT LOWER LOBE LIPASE DOWN TO 400 AND LFTS ESSENTIALLY BACK TO NORMAL/ WBC OKAY RISKS AND OPTIONS FULLY DISCUSSED WITH THE PATIENT AND HER AT THIS POINT WOULD PROBABLY RECOMMEND DELAYED LAP CHOLY SINCE SHE IS 1 WEEK INTO PAIN AND GALLBLADDER APPEARS MARKEDLY THICKENED ON ULTRASOUND BUT THAT REPORT IS PENDING NORMALLY WE WOULD DO LAP CHOLY BEFORE DISCHARGE AFTER GALLSTONE PANCREATITIS BUT IN HER CASE THE GALLBLADDER SEEMS TO BE QUITE SICK FOR PROLONGED TIME AND MAY REQUIRE COOL DOWN ON ANTIBIOTICS Objective: Vital Signs Temp Pulse Resp BP Pulse Ox 36.9 C 108 H 16 111/69 86 L 05/28/18 07:44 05/28/18 07:44 05/28/18 07:44 05/28/18 07:44 05/28/18 07:44 Laboratory Results 05/28/18 04:39 05/28/18 04:39 05/27/18 05/28/18 05/29/18 05:59 05:59 05:59 Intake Total 1956 Balance 195 ICD10 Worksheet Patient Problems: Problems Problem Status Onset Abdominal pain Acute
--- NOTE | 2018-05-28 15:10 | HOSPPROG ---
Hospitalist Progress Note Assessment/Plan: DIAGNOSES: * acute postprocedural pancreatitis after ERCP * choledocholithiasis with a large stone removed by ERCP * pain management issues * acute hypoxemic respiratory failure * I suspect this is due to pleural effusion and atelectasis from her pancreatitis but and waiting on chest x-ray Overall at this point without fever or definite findings of cholecystitis on ultrasound, I suspect that her pain is mostly due to pancreatitis at this point. I have ever seen significant cholecystitis within normal ultrasound on occasion. Will see what her x-ray looks like to determine cause of respiratory failure but I suspect it is all inflammatory fluid accumulation and atelectasis. Other than hypoxemia she does not have any organ failure or fevers and so I think overall she is really fairly stable with slow improvement , however some concern about her ongoing tachycardia The patient and her are fairly anxious about her situation and have had many questions. I reviewed her situation with them in detail and answered her questions to the best I can in have reviewed the case today with Dr. Carr. Dr. Carr reviewed with Dr. Meza and they were recommending delay before cholecystectomy but they will review further with Dr. Nguyen. PLANS: * Chest x-ray has been ordered and I am waiting for this to be done, will review that * Continue IV hydration * Continue pain management, currently doing well with GIN INSPECTOR pump * Antiemetics as needed * Follow for any signs of fever or other complications Overall she is improving, however she remains with moderately severe pain requiring GIN INSPECTOR pump, tachycardia, slowly resolving blood test values. Would continue symptomatic treatment and supportive care at this time. At this point I would side with Dr. Meza in advising probable delay before cholecystectomy. SUBJECTIVE: Ongoing epigastric and mid back pain with intermittent nausea, still using IV pain and nausea medicines Some dyspnea today including exertional dyspnea without chest pain or cough No chills or sweats OBJECTIVE Vitals reviewed: Remains somewhat tachycardic, otherwise Stable without fever Oxygen now to 5-6 L Exam: Notably more alert today compared to my visit yesterday skin warm dry color ok no jaundice resps slightly tachypneic but not labored, using more oxygen today lungs significant egophony particularly at right lung base heart regular abd remains tender and a bit distended, bowel sounds present limbs warm, trace ankle edema iv site ok Lab data: White count up to 12,000 hemoglobin down to 10 today Some improvement in liver enzymes and lipase today Imaging: Abdominal ultrasound done showing no evidence of stones in the gallbladder or ducts, no thickening of the gallbladder wall or pericholecystic fluid, though there is fluid around the pancreas consistent with pancreatitis without evidence of pseudocyst Objective: Vital Signs Temp Pulse Resp BP Pulse Ox 36.8 C 114 H 16 133/80 H 95 05/28/18 12:00 05/28/18 12:00 05/28/18 12:00 05/28/18 12:00 05/28/18 12:00 Laboratory Results 05/28/18 04:39 05/28/18 04:39 05/27/18 05/28/18 05/29/18 06:59 06:59 06:59 Intake Total 1957 Balance 195 - Time Spent With Patient Time Spent with Patient: greater than 35 minutes Time Spent with Patient: Greater than 35 minutes spent on this patients care, greater than 50% of time spent counseling, educating, and coordinating care regarding the above mentioned plan. ICD10 Worksheet Patient Problems: Problems Problem Status Onset Abdominal pain Acute
--- NOTE | 2018-05-28 15:51 | SOAPPROG ---
CLARISSA Progress Note Assessment/Plan: Social Note Assessment/Plan: Pain somewhat better today, with lipase down to the 400s. Dr. Grant's US report is incorrect; there are multiple gallstones in the gallbladder (he did an addendum). What is not incorrect is that the gallbladder looks good, without pericholecystic fluid, thickened wall, etc. What brought the pt. into the hospital was symptomatic choledocholithiasis, which was taken care of with ERCP. Now, she is still in the midst of moderately severe, but improving, post-ERCP pancreatitis, with secondary ileus. Her pain is in the same location and of the same type as the last few days, bilateral upper quadrants, about equally, but with the worse tenderness in the epigastric area. With this, and the US report, I do not think she has symptomatic gallbladder disease at this time. - would not do lap debbie, in the midst of continued moderately severe pancreatitis; this can be done intervally, in 2 - 4 weeks, after she's recovered. - clinically, she seems to be dragging a day or two behind her numbers. With her lipase now in the 400s, suspect she will be much better tomorrow or Wednesday. - will allow sips of cranberry juice (her wish) Case d/w the pt., Roger (her ) 05/28/18 15:44 Objective: Vital Signs Temp Pulse Resp BP Pulse Ox 36.8 C 114 H 16 133/80 H 95 05/28/18 12:00 05/28/18 12:00 05/28/18 12:00 05/28/18 12:00 05/28/18 12:00 Laboratory Results 05/28/18 04:39 05/28/18 04:39 05/27/18 05/28/18 05/29/18 05:59 05:59 05:59 Intake Total 1956 Balance 195 ICD10 Worksheet Patient Problems: Problems Problem Status Onset Abdominal pain Acute
--- NOTE | 2018-05-28 17:31 | SOAPPROG ---
CLARISSA Progress Note Assessment/Plan: Assessment: FEELING BETTER AFTER COMMON DUCT STONE REMOVAL BUT NOW WITH BOWEL PANCREATITIS ABDOMEN SOFT/NONICTERIC/CHEST CLEAR RISKS AND OPTIONS FULLY DISCUSSED Plan: LAP CHOLY ON WEDNESDAY OF HER NUMBERS ARE IMPROVING 05/25/18 19:45 05/28/18 12:43 AFEBRILE BUT KNIFE MACHINE OPERATOR IN THE RIGHT UPPER QUADRANT/OVERALL IMPROVED/ NONICTERIC/DECREASED BREATH SOUNDS IN THE RIGHT LOWER LOBE LIPASE DOWN TO 400 AND LFTS ESSENTIALLY BACK TO NORMAL/ WBC OKAY RISKS AND OPTIONS FULLY DISCUSSED WITH THE PATIENT AND HER AT THIS POINT WOULD PROBABLY RECOMMEND DELAYED LAP CHOLY SINCE SHE IS 1 WEEK INTO PAIN AND GALLBLADDER APPEARS MARKEDLY THICKENED ON ULTRASOUND BUT THAT REPORT IS PENDING NORMALLY WE WOULD DO LAP CHOLY BEFORE DISCHARGE AFTER GALLSTONE PANCREATITIS BUT IN HER CASE THE GALLBLADDER SEEMS TO BE QUITE SICK FOR PROLONGED TIME AND MAY REQUIRE COOL DOWN ON ANTIBIOTICS 05/28/18 17:30 ULTRASOUND CONFIRMS THE THICKENED GALLBLADDER WITH MULTIPLE STONES/RISKS AND OPTIONS FULLY DISCUSSED/PANCREATITIS RESOLVING BUT HER PAIN IS STILL FROM HER CHOLECYSTITIS WILL PROCEED WITH LAP CHOLY IN THE A.M. Objective: Vital Signs Temp Pulse Resp BP Pulse Ox 36.8 C 113 H 16 139/86 H 94 05/28/18 15:45 05/28/18 15:45 05/28/18 15:45 05/28/18 15:45 05/28/18 15:45 Laboratory Results 05/28/18 04:39 05/28/18 04:39 05/27/18 05/28/18 05/29/18 05:59 05:59 05:59 Intake Total 1956 Balance 195 ICD10 Worksheet Patient Problems: Problems Problem Status Onset Abdominal pain Acute
[2018-05-29] MEDS: MELATONIN 3 MG TAB PO PRN (00:27)
[2018-05-29] MEDS: D5W 1/2 NS W/ 20 KCl/L 1,000 ML IV SCH ×3 (00:28→17:51)
[2018-05-29 08:28] LABS: PLATELET COUNT 243 10^3/uL (150-400)
--- NOTE | 2018-05-29 09:10 | SOAPPROG ---
CLARISSA Progress Note Assessment/Plan: Assessment:Plan: 1) pancreatitis - improving but still with pain and decreased bs/ileus, lipase down, using PASSENGER BARGE MASTER for pain control 2) RUQ pain - check sonogram, start abx/Invanz for possible cholecystitis, if sonogram looks fine, then no surgery today 3) Pulm - egophony in RLL - CXR PA and Lat, and incentive spirometer 4) pain - PASSENGER BARGE MASTER - unclear if her RUQ pain is from her pancreatitis or her GB discussed with Doctors Hayes Meza and Patrick will follow 05/29/18 09:06 as above pt still with sig RUQ abd to right of epi pain, left side better now, pain in back as well LFT's down, Lipase normal sonogram with contracted GB so cannot really tell if inflamed CXR with poss early pneumonia vs atelectasis vs effusion 1) pancreatitis - Lipase nml, resolving/resolved 2) RUQ pain - I am ordering HIDA scan, I expect it will be abnml 3) Pulm - incentive spirometer, on abx, follow clinically 4) pain - PASSENGER BARGE MASTER as per primary, will see if HIDA abnml then her pain is from her GB and she will need it removed. If HIDA nml then treat as if all pancreatitis. Subjective: CC - pancreatitis, RUQ pain, gallstones pt still with sig RUQ pain radiating to her right back cough small amount of sputum, coughing doesn't hurt LFT's decreasing, lipase nml WBC up Objective: Vital Signs Temp Pulse Resp BP Pulse Ox 37.3 C 120 H 16 102/63 90 L 05/29/18 07:34 05/29/18 07:34 05/29/18 07:34 05/29/18 07:34 05/29/18 07:34 Laboratory Results 05/29/18 08:20 05/28/18 04:39 05/28/18 05/29/18 05/30/18 05:59 05:59 05:59 Intake Total 1956 500 Balance 1956 500 A+Ox3 decreased breath sounds, some egophony at right base S1S2 +BS, decreased, distended tender with guarding RUQ Laboratory Tests 05/25/18 05/26/18 05/28/18 04:33 04:34 04:39 WBC 12.18 H Total Bilirubin 1.5 H 0.9 ALT 749 H 469 H Alkaline Phosphatase 113 87 Lipase 20446 H 8123 H 05/28/18 05/29/18 05/29/18 04:39 08:20 08:20 WBC 14.78 H Total Bilirubin 0.6 0.6 ALT 207 H 163 H Alkaline Phosphatase 68 72 Lipase 482 H 245 ICD10 Worksheet Patient Problems: Problems Problem Status Onset Abdominal pain Acute
[2018-05-29] MEDS: CYCLOBENZAPRINE 10 MG TAB PO SCH ×3 (09:28→22:25)
[2018-05-29] MEDS: ERTAPENEM 1 GM in NS 100 ML IV SCH (09:28)
--- NOTE | 2018-05-29 10:10 | SOAPPROG ---
CLARISSA Progress Note Assessment/Plan: Assessment: FEELING BETTER AFTER COMMON DUCT STONE REMOVAL BUT NOW WITH BOWEL PANCREATITIS ABDOMEN SOFT/NONICTERIC/CHEST CLEAR RISKS AND OPTIONS FULLY DISCUSSED Plan: LAP CHOLY ON WEDNESDAY OF HER NUMBERS ARE IMPROVING 05/25/18 19:45 05/28/18 12:43 AFEBRILE BUT ELECTRICAL AND INSTRUMENTATION MANAGER IN THE RIGHT UPPER QUADRANT/OVERALL IMPROVED/ NONICTERIC/DECREASED BREATH SOUNDS IN THE RIGHT LOWER LOBE LIPASE DOWN TO 400 AND LFTS ESSENTIALLY BACK TO NORMAL/ WBC OKAY RISKS AND OPTIONS FULLY DISCUSSED WITH THE PATIENT AND HER AT THIS POINT WOULD PROBABLY RECOMMEND DELAYED LAP CHOLY SINCE SHE IS 1 WEEK INTO PAIN AND GALLBLADDER APPEARS MARKEDLY THICKENED ON ULTRASOUND BUT THAT REPORT IS PENDING NORMALLY WE WOULD DO LAP CHOLY BEFORE DISCHARGE AFTER GALLSTONE PANCREATITIS BUT IN HER CASE THE GALLBLADDER SEEMS TO BE QUITE SICK FOR PROLONGED TIME AND MAY REQUIRE COOL DOWN ON ANTIBIOTICS 05/28/18 17:30 ULTRASOUND CONFIRMS THE THICKENED GALLBLADDER WITH MULTIPLE STONES/RISKS AND OPTIONS FULLY DISCUSSED/PANCREATITIS RESOLVING BUT HER PAIN IS STILL FROM HER CHOLECYSTITIS WILL PROCEED WITH LAP CHOLY IN THE A.M. 05/29/18 10:07 PATIENT CONTINUES TO IMPROVE/LIPASE NORMAL/LFTS ESSENTIALLY NORMAL/WBC 14 K ABDOMINAL EXAM REVEALS SIGNIFICANT MASS AN TENDERNESS IN THE RIGHT UPPER QUADRANT, THE REMAINDER OF THE ABDOMEN IS MUCH SOFTER AND NONTENDER WITH POSITIVE BOWEL SOUNDS DR. ALAN AND HER ARE CONCERNED ABOUT SURGERY FOR AND HAD EXACERBATION OF HER PANCREATITIS WE WILL PLAN TO HOLD OFF ON SURGERY AND TREATED A WITH ANTIBIOTICS AND FOLLOW UP AN OUTPATIENT FOR LAP CHOLY IN 3 WEEKS/RISKS AND OPTIONS AGAIN FULLY DISCUSSED HEENT NONICTERIC CHEST SOME DECREASED BREATH SOUNDS IN THE RIGHT LOWER LOBE AND CHEST X-RAY REVEAL SOME EFFUSION AND ATELECTASIS IN THE RIGHT LOWER LOBE COR REGULAR RHYTHM ABDOMEN SOFT, DISTENDED WITH TENDERNESS IN THE RIGHT UPPER QUADRANT IMPRESSION: SUBACUTE CHOLECYSTITIS AND CHOLELITHIASIS WITH POST ERCP PANCREATITIS WHICH IS RESOLVING. AT THIS POINT IS SAFEST TO WAIT FOR RESOLUTION AND LAP CHOLY IN 3-4 WEEKS Objective: Vital Signs Temp Pulse Resp BP Pulse Ox 37.3 C 120 H 16 102/63 90 L 05/29/18 07:34 05/29/18 07:34 05/29/18 07:34 05/29/18 07:34 05/29/18 07:34 Laboratory Results 05/29/18 08:20 05/28/18 04:39 05/28/18 05/29/18 05/30/18 05:59 05:59 05:59 Intake Total 1956 500 Balance 1956 500 ICD10 Worksheet Patient Problems: Problems Problem Status Onset Abdominal pain Acute
[2018-05-29] MEDS: IBUPROFEN 600 MG TAB PO PRN (11:15)
[2018-05-29] MEDS: HYDROmorphONE/DILAUDID 6 MG/30 ML PCA IV PRN (16:49)
--- NOTE | 2018-05-29 16:59 | ASMTCMCOM ---
CM Note CM Note Notes: CM discussed case with care team, plan continues to be probably discharge home independent. CM to follow. Plan: Independent, date TBD. Date Signed: 05/29/2018 04:58 PM Electronically Signed By:Taylor Vazquez
[2018-05-29] MEDS: GUAIFENESIN/DM 10 ML UDCUP PO PRN (19:33)
--- NOTE | 2018-05-29 22:32 | HOSPPROG ---
Hospitalist Progress Note Assessment/Plan: Acute pancreatitis, improved Cholelithiasis Choledocholithiasis, s/p ERCP w/ sphincterotomy/stone removal Abd pain, 2/2 above Cough, malaise Atelectasis Anemia, stable -Reviewed HIDA results. -Discussed w/ Dr. Carr who recommended HIDA scan to eval cholecystitis -Gen Surg considering cholecystectomy -Re: cough - resp panel ordered - negative. Likely throat irritation from recent ERCP but could be a URI virus -ISU as tolerated (deep breaths worsen abd pain). -Pt hungry - trial clear liquids tonight, NPO in AM in case of surg. -This pt is new to me. Reviewed chart/records for this visit. HIDA scan - mild filling GB w/ morphine. US RUQ - no gallstones. ERCP - reviewed. Lipase- nl. Subjective: Pt c/o persistent abd pain. +cough. Pain worse w/ deep breath/ cough. No congestion. Objective: Vital Signs Temp Pulse Resp BP Pulse Ox 36.8 C 89 16 117/74 90 L 05/29/18 20:00 05/29/18 20:00 05/29/18 20:00 05/29/18 20:00 05/29/18 20:00 Microbiology 05/29/18 17:07 Respiratory Panel (PCR) - Final Nasal, Sinus - Anaerobic Tube/Swab No Organism Detected Laboratory Results 05/29/18 08:20 05/28/18 04:39 05/28/18 05/29/18 05/30/18 05:59 05:59 05:59 Intake Total 1956 500 Output Total 800 Balance 1956 500 -800 General: The patient is a female who is alert and in no acute distress. HEENT: normocephalic, extraocular movements intact, conjunctivae clear, no lesions on face. Mucous membranes moist. Neck: trachea midline, no visible masses, no external lesions. Abd: soft and mildly distended. +midepigastric/RUQ tenderness to mild palpation. No rebound tenderness/guarding. Musculoskeletal: Normal muscle tone. Neuro: cranial nerves II XII grossly intact. Intact gross motor and sensory function. Psych: appropriate mood/affect. Skin: No pallor. Heme/lymph: No peripheral edema. - Time Spent With Patient Time Spent with Patient: greater than 35 minutes Time Spent with Patient: Greater than 35 minutes spent on this patients care, greater than 50% of time spent counseling, educating, and coordinating care regarding the above mentioned plan. ICD10 Worksheet Patient Problems: Problems Problem Status Onset Abdominal pain Acute
[2018-05-30] MEDS: GUAIFENESIN/DM 10 ML UDCUP PO PRN ×4 (03:49→20:24)
[2018-05-30 05:25] LABS: PLATELET COUNT 326 10^3/uL (150-400)
[2018-05-30] MEDS: HYDROmorphONE/DILAUDID 6 MG/30 ML PCA IV PRN ×2 (07:49→16:12)
[2018-05-30] MEDS: CYCLOBENZAPRINE 10 MG TAB PO SCH ×3 (08:34→21:41)
[2018-05-30] MEDS: ERTAPENEM 1 GM in NS 100 ML IV SCH (08:34)
[2018-05-30] MEDS: PIPERACILLIN/TAZO 3.375 GM/DEX 50 ML IV SCH ×2 (11:42→18:03)
[2018-05-30] MEDS: D5W 1/2 NS W/ 20 KCl/L 1,000 ML IV SCH (11:42)
--- NOTE | 2018-05-30 11:54 | SOAPPROG ---
CLARISSA Progress Note Assessment/Plan: Assessment/Plan: 48 Y F acute calculous cholecystitis, choledocholithiasis, pancreatitis. s/p ERCP. Discussed with Dr. Nguyen and also with Dr. Abdi who will see the patient later today. Would recommend continued antibiotics with interval lap debbie in about 3 weeks. If problems, then could do percutaneous drain and still hold off on lap debbie. Patient was doing well yesterday but today Ashley has some more right sided back pain. Abdominal exam not markedly bad. Bilirubin and lipase are normalized. Slight increase in hepatic transaminases and WBCs. Afebrile. Would continue to observe on antibiotics but will defer to Dr. Abdi's opinion. Also discussed with hospitalist. S: c/o mid back pain, on both sides of spine, but more pronounced on right. no fever or chills or sweats. O: alert, nad no jaundice no wob rrr abd soft, mild ruq tenderness but no guarding 05/30/18 11:48 Objective: Vital Signs Temp Pulse Resp BP Pulse Ox 37.6 C 111 H 14 108/73 92 05/30/18 11:39 05/30/18 11:39 05/30/18 11:39 05/30/18 11:39 05/30/18 11:39 Microbiology 05/29/18 17:07 Respiratory Panel (PCR) - Final Nasal, Sinus - Anaerobic Tube/Swab No Organism Detected Laboratory Results 05/30/18 04:55 05/28/18 04:39 05/29/18 05/30/18 05/31/18 05:59 05:59 05:59 Intake Total 500 Output Total 800 Balance 500 -800 ICD10 Worksheet Patient Problems: Problems Problem Status Onset Abdominal pain Acute
--- NOTE | 2018-05-30 14:12 | SOAPPROG ---
SOAP Progress Note Assessment/Plan: Assessment/Plan: Jin Parker's help appreciated. Unusual case, in that she presented with flank pain due to biliary obstruction, which resolved after large cbd stone removed, and then developed post-ERCP pancreatitis, with clinical exam consistent with this. However, her pancreatitis is now essentially resolved, with normal lipase x multiple days, yet still with significant pain, mostly in the back. US shows, besides a gallbladder full of stones, a thickened wall, and HIDA for the most part positive. With this, agree that cholecystitis is now her main problem. - case d/w Dr. Abdi today. For now, will continue 'biots (switched to include enterococcus), reassess tomorrow, in terms of timing for surgery - she feels her pain meds are making her "too loopy." Dr. Abdi will see if a different option might be available. I discussed the above with the pt. and her , as well. Thanks! 05/30/18 14:14 Subjective: cc: pain Had a good night, but a return of significant pain today, mostly in her back. Pain meds help, but make her "loopy" and see double. No rigors, sweats, chills. Tolerating clears. Abdomen slightly less distended; now, passing gas. Objective: Vital Signs Temp Pulse Resp BP Pulse Ox 37.6 C 111 H 14 108/73 92 05/30/18 11:39 05/30/18 11:39 05/30/18 11:39 05/30/18 11:39 05/30/18 11:39 Microbiology 05/29/18 17:07 Respiratory Panel (PCR) - Final Nasal, Sinus - Anaerobic Tube/Swab No Organism Detected Laboratory Results 05/30/18 04:55 05/28/18 04:39 05/29/18 05/30/18 05/31/18 05:59 05:59 05:59 Intake Total 500 Output Total 800 Balance 500 -800 Physical Exam - Physical Exam General Appearance: WD/WN, alert, no apparent distress EENT: PERRL/EOMI, normal ENT inspection, pharynx normal, TMs normal Neck: non-tender, full range of motion, supple, normal inspection Respiratory: chest non-tender, lungs clear, normal breath sounds Cardiac/Chest: normal peripheral pulses, regular rate, rhythm Peripheral Pulses: 2+: carotid (R), carotid (L), femoral (R), femoral (L), dorsalis-pedis (R), dorsalis-pedis (L) Abdomen: normal bowel sounds, soft, No non-tender (RUQ/epigastric tenderness, but somewhat less.) Pelvic Exam: deferred Rectal: deferred Back: Normal inspection Skin: normal color, warm/dry Lymphatic: no adenopathy Extremities: normal range of motion, non-tender, normal inspection, normal capillary refill Neuro/Psych: no motor/sensory deficits, alert, normal mood/affect, oriented x 3 ICD10 Worksheet Patient Problems: Problems Problem Status Onset Abdominal pain Acute
[2018-05-30] MEDS: BENZONATATE 100 MG CAP PO PRN (15:36)
--- NOTE | 2018-05-30 19:44 | HOSPPROG ---
Hospitalist Progress Note Assessment/Plan: Acute pancreatitis, improved Cholelithiasis Choledocholithiasis, s/p ERCP w/ sphincterotomy/stone removal Abd pain, 2/2 above Cough, malaise Atelectasis Anemia, stable Medication adverse effect -continue to follow clinically -Gen Surg considering cholecystectomy -Re: cough - resp panel ordered - negative. Likely throat irritation from a URI virus -ISU as tolerated (deep breaths worsen abd pain). -Pt hungry - okay for clear liquids during the day, NPO in AM in case of surg. -decided not to change her pain medication since she has tried some other pain medications previously and nothing seemed to help her pain as much as which she is currently on. She seems to tolerate the adverse effects okay. Warned her that it may be hard to wean off of medication if she is use to it. -discussed case with General surgery. -check a.m. Labs HIDA scan - mild filling GB w/ morphine. US RUQ - no gallstones. ERCP - reviewed. Lipase- nl. Subjective: Today patient still has pain in mid epigastrium. She also complains of back pain. She complains that the Dilaudid pain medication makes her feel altered. However when she was given morphine yesterday for HIDA scan, she did not feel that it helped with her pain at all. She does like having her SENIOR TRIAL ATTORNEY pump. Objective: General: The patient is a female who is alert and in no acute distress. HEENT: normocephalic, extraocular movements intact, conjunctivae clear, no lesions on face. Mucous membranes moist. Neck: trachea midline, no visible masses, no external lesions. Abd: soft and nondistended. Musculoskeletal: Normal muscle tone and bulk Neuro: cranial nerves II XII grossly intact. Intact gross motor and sensory function. Psych: appropriate mood/affect. Skin: No pallor. Objective: Vital Signs Temp Pulse Resp BP Pulse Ox 37.1 C 107 H 16 124/72 H 92 05/30/18 19:26 05/30/18 19:26 05/30/18 19:26 05/30/18 19:26 05/30/18 19:26 Microbiology 05/29/18 17:07 Respiratory Panel (PCR) - Final Nasal, Sinus - Anaerobic Tube/Swab No Organism Detected Laboratory Results 05/30/18 04:55 05/28/18 04:39 05/29/18 05/30/18 05/31/18 05:59 05:59 05:59 Intake Total 500 Output Total 800 Balance 500 -800 ICD10 Worksheet Patient Problems: Problems Problem Status Onset Abdominal pain Acute
[2018-05-31] MEDS: PIPERACILLIN/TAZO 3.375 GM/DEX 50 ML IV SCH ×5 (00:13→23:12)
[2018-05-31] MEDS: D5W 1/2 NS W/ 20 KCl/L 1,000 ML IV SCH ×2 (00:13→15:21)
[2018-05-31] MEDS: HYDROmorphONE/DILAUDID 6 MG/30 ML PCA IV PRN ×2 (02:29→15:29)
[2018-05-31] MEDS: GUAIFENESIN/DM 10 ML UDCUP PO PRN ×4 (04:13→23:11)
[2018-05-31 05:19] LABS: PLATELET COUNT 376 10^3/uL (150-400)
[2018-05-31] MEDS: CYCLOBENZAPRINE 10 MG TAB PO SCH ×3 (08:08→22:09)
[2018-05-31] MEDS: BENZONATATE 100 MG CAP PO PRN (08:08)
--- NOTE | 2018-05-31 10:29 | PDHPUP ---
History & Physical Update H&P update statement: This history and physical update is based on an assessment of the patient which was completed after admission or registration (within 24 hours), but prior to the surgery/procedure. H&P update: H&P reviewed & patient examined, no change in patient's condition since H&P completed (Patients condition is getting worse, will proceed to the OR for lap debbie. Discussed likelihood of open procedure along with associated risks of operation. )
[2018-05-31] MEDS ORDERED: BUPIVACAINE/EPI 0.5% 30 ML SDV ONE (10:37)
[2018-05-31] MEDS ORDERED: ceFAZolin 1 GM/5 ML SYR ONE (10:37)
[2018-05-31] MEDS ORDERED: HEPARIN 1000 UNIT/1 ML MDV ONE (10:37)
[2018-05-31] MEDS ORDERED: LR 1,000 ML IV ONE (11:03)
[2018-05-31] MEDS ORDERED: MIDAZOLAM 2 MG/2 ML VIAL IVP ONE (11:55)
--- NOTE | 2018-05-31 11:55 | PDANEPAE ---
ANE Past Medical History - Cardiovascular History Hx Hypertension: No Hx Arrhythmias: No Hx Chest Pain: No Hx Coronary Artery / Peripheral Vascular Disease: No Hx CHF / Valvular Disease: No Hx Palpitations: No - Pulmonary History Hx COPD: No Hx Asthma/Reactive Airway Disease: No Hx Recent Upper Respiratory Infection: No Hx Oxygen in Use at Home: No Hx Sleep Apnea: No Sleep Apnea Screening Result - Last Documented: Negative - Neurologic History Hx Cerebrovascular Accident: No Hx Seizures: No Hx Dementia: No - Endocrine History Hx Diabetes: No Hypothyroid: No Hyperthyroid: No Obesity: no - Renal History Hx Renal Disorders: No - Cancer History Hx Cancer: No - Congenital Disorder History Hx Congenital Disorders: No - GI History GERD: no Hx Gastrointestinal Disorders: Yes Gastrointestinal History Comment: cholecystitis and gallstone pancreatitis - Chronic Pain History Chronic Pain: No ANE Review of Systems Review of Systems: - Exercise capacity Exercise capacity: >=4 METS ANE Patient History - Allergies Allergies/Adverse Reactions: erythromycin lactobionate [From Erythrocin] Allergy (Intermediate, Verified 23:46) Rash - Home Medications Home Medications: Acetaminophen [Tylenol 325mg (*)] 325 mg PO DAILY PRN 05/24/18 [Last Taken Unknown] Ibuprofen [Motrin (*)] 200 mg PO DAILY PRN 05/24/18 [Last Taken Unknown] diphenhydrAMINE [Benadryl 25 MG (*)] 25 mg PO DAILY PRN 05/24/18 [Last Taken Unknown] - NPO status NPO Since - Liquids (Date): 05/31/18 NPO Since - Liquids (Time): 07:00 NPO Since - Solids (Date): 05/23/18 NPO Since - Solids (Time): 19:00 - Anes Hx Anes Hx: no prior problems - Smoking Hx Smoking Status: Never smoked - Alcohol Use Alcohol Use: Occasionally - Family Anes Hx Family Anes Hx: neg - N/A ANE Labs/Vital Signs - Labs Result Diagrams: 05/31/18 04:50 05/28/18 04:39 - Vital Signs Blood Pressure: 137/100 Heart Rate: 113 Respiratory Rate: 20 O2 Sat (%): 2 Height: 170.18 cm Weight: 63.5 kg ANE Physical Exam - Airway Neck exam: FROM Mallampati Score: Class 2 Mouth exam: normal dental/mouth exam - Pulmonary Pulmonary: no respiratory distress, no rales or rhonchi, clear to auscultation - Cardiovascular Cardiovascular: regular rate and rhythym, no murmur, rub, or gallop - ASA Status ASA Status: II, E ANE Anesthesia Plan Anesthesia Plan: general endotracheal anesthesia Total IV Anesthesia: No
[2018-05-31] MEDS ORDERED: MIDAZOLAM 2 MG/2 ML VIAL ONE (11:57)
[2018-05-31] MEDS ORDERED: REMIFENTANIL HCL 1 MG VIAL ONE (12:13)
[2018-05-31] MEDS ORDERED: fentaNYL 100 MCG/2 ML INJ ONE (12:13)
[2018-05-31] MEDS ORDERED: PROPOFOL 200 MG/20 ML VIAL ONE (12:13)
[2018-05-31] MEDS ORDERED: PROPOFOL/EMULSION 500 MG/50 ML BOTTLE IV ONE (12:13)
[2018-05-31] MEDS ORDERED: ROCURONIUM 50 MG/5 ML VIAL ONE (12:14)
[2018-05-31] MEDS ORDERED: KETOROLAC 30 MG/1 ML SDV ONE (12:14)
[2018-05-31] MEDS ORDERED: ONDANSETRON 4 MG/2 ML VIAL ONE (12:14)
[2018-05-31] MEDS ORDERED: DEXAMETHASONE 4 MG/ML VIAL ONE (12:14)
[2018-05-31] MEDS ORDERED: LIDOCAINE 2% 5 ML SDV ONE (12:15)
[2018-05-31] MEDS ORDERED: NEOSTIGMINE METHYLSULFATE 5 MG/5 ML SYR ONE (13:26)
[2018-05-31] MEDS ORDERED: GLYCOPYRROLATE 0.2 MG/1 ML VIAL ONE ×4 (13:26)
[2018-05-31] MEDS ORDERED: oxyCODONE IR 5 MG TAB PO PRN (14:00)
[2018-05-31] MEDS ORDERED: HYDROmorphONE/DILAUDID 2 MG/ML INJ IVP PRN (14:00)
[2018-05-31] MEDS ORDERED: PROMETHAZINE HCL 25 MG/ML INJ IVP PRN (14:00)
[2018-05-31] MEDS ORDERED: HYDROCODONE/APAP 5/325 TAB PO PRN (14:00)
[2018-05-31] MEDS ORDERED: NALOXONE HCL 0.4 MG/ML INJ IVP PRN (14:00)
[2018-05-31] MEDS ORDERED: ACETAMINOPHEN 500 MG TAB PO PRN (14:00)
[2018-05-31] MEDS ORDERED: PHENYLEPHRINE HCL 100 MCG/ML SYR IVP PRN (14:00)
[2018-05-31] MEDS ORDERED: ONDANSETRON 4 MG/2 ML VIAL IVP PRN (14:00)
[2018-05-31] MEDS ORDERED: fentaNYL 100 MCG/2 ML INJ IVP PRN (14:00)
[2018-05-31] MEDS ORDERED: LR 500 ML IV PRN (14:00)
--- NOTE | 2018-05-31 14:01 | POSTANESTH ---
Post Anesthetic Evaluation Cardiovascular Status: Similar to Pre-Op Cond Respiratory Status: Normal, Stable Level of Consciousness/Mental Status: Can Participate in Eval Pain Control: Adequate, Prn Tx Ordered Nausea/Vomiting Control: Adequate, Prn Tx Ordered Complications Possibly Related to Anesthesia: None Noted (asymptomatic sinus tachycardia)
--- NOTE | 2018-05-31 18:45 | SOAPPROG ---
SOAP Progress Note Assessment/Plan: Assessment/Plan: Continued significant pain, with wbc increased to 17K. Failing IV 'biots to try and "cool off" the gallbladder pre-op. - pt. to go for cholecystectomy; case d/w her . Postop check Dr. Abdi's excellent work appreciated. Able to be done laparoscopically. Pt. already feels better. Case again discussed with . - further mgmt as per surgery We will sign off; please call if we can be of help in the future (. Thanks! 05/31/18 18:41 Subjective: cc: gallstones Still with significant pain. No rigors, sweats, chills, vomiting. Objective: Vital Signs Temp Pulse Resp BP Pulse Ox 36.9 C 92 16 128/79 H 95 05/31/18 18:00 05/31/18 18:00 05/31/18 18:00 05/31/18 18:00 05/31/18 18:00 Laboratory Results 05/31/18 04:50 05/28/18 04:39 05/30/18 05/31/18 06/01/18 05:59 05:59 05:59 Intake Total 1350 Output Total 800 25 Balance -800 1325 Physical Exam - Physical Exam General Appearance: WD/WN, alert, no apparent distress EENT: PERRL/EOMI, normal ENT inspection, pharynx normal, TMs normal Neck: non-tender, full range of motion, supple, normal inspection Respiratory: chest non-tender, lungs clear, normal breath sounds Cardiac/Chest: normal peripheral pulses, regular rate, rhythm Peripheral Pulses: 2+: carotid (R), carotid (L), femoral (R), femoral (L), dorsalis-pedis (R), dorsalis-pedis (L) Abdomen: distended, No non-tender (RUQ/epigastric moderate tenderness) Pelvic Exam: deferred Rectal: deferred Back: Normal inspection Skin: normal color, warm/dry Lymphatic: no adenopathy Extremities: normal range of motion, non-tender, normal inspection, normal capillary refill Neuro/Psych: no motor/sensory deficits, alert, normal mood/affect, oriented x 3 ICD10 Worksheet Patient Problems: Problems Problem Status Onset Abdominal pain Acute
--- NOTE | 2018-05-31 18:46 | HOSPPROG ---
Hospitalist Progress Note Assessment/Plan: Acute pancreatitis, improved Cholelithiasis/cholecystitis - s/p lap cholecystectomy today Choledocholithiasis, s/p ERCP w/ sphincterotomy/stone removal Abd pain, 2/2 above Cough, malaise Atelectasis Anemia, stable Medication adverse effect -Follow postop. Prn analgesia, antiemetics. -Re: cough - resp panel ordered - negative. Likely throat irritation from a URI virus -ISU as tolerated (deep breaths worsen abd pain). -discussed case with GI and Gen Surg -check a.m. Labs Subjective: Today pt seen postop, she was tired. Objective: General: The patient is a female who is awake and in no acute distress. HEENT: normocephalic, extraocular movements intact, conjunctivae clear, no lesions on face. Mucous membranes moist. Neck: trachea midline, no visible masses, no external lesions. Abd: soft and nondistended. Musculoskeletal: Normal muscle tone and bulk Psych: appropriate mood/affect. Skin: No pallor. HIDA scan - mild filling GB w/ morphine. US RUQ - no gallstones. ERCP - reviewed. Lipase- nl. Objective: Vital Signs Temp Pulse Resp BP Pulse Ox 36.9 C 92 16 128/79 H 95 05/31/18 18:00 05/31/18 18:00 05/31/18 18:00 05/31/18 18:00 05/31/18 18:00 Laboratory Results 05/31/18 04:50 05/28/18 04:39 05/30/18 05/31/18 06/01/18 05:59 05:59 05:59 Intake Total 1350 Output Total 800 25 Balance -800 1325 ICD10 Worksheet Patient Problems: Problems Problem Status Onset Abdominal pain Acute
[2018-05-31] MEDS: ZOLPIDEM TARTRATE 5 MG TAB PO PRN (23:43)
[2018-06-01 05:42] LABS: PLATELET COUNT 461 10^3/uL (150-400)
[2018-06-01] MEDS: PIPERACILLIN/TAZO 3.375 GM/DEX 50 ML IV SCH ×4 (06:27→23:27)
[2018-06-01] MEDS: CYCLOBENZAPRINE 10 MG TAB PO SCH ×3 (07:48→20:01)
[2018-06-01] MEDS: GUAIFENESIN/DM 10 ML UDCUP PO PRN ×3 (07:49→19:44)
--- NOTE | 2018-06-01 09:37 | SOAPPROG ---
SOAP Progress Note Assessment/Plan: Assessment/Plan: 48 Y F acute calculous cholecystitis, choledocholithiasis, pancreatitis. s/p ERCP. s/p lap debbie. Doing very well this am. LFTs slightly better. WBC up, but suspect this from stress of surgery. Expect this to trend down. Pain controlled--much improved since surgery. Not using SPORTS INFORMATION DIRECTOR as nearly as much. Will advance to low fat diet. D/c SPORTS INFORMATION DIRECTOR. Add norco and toradol. Continue IV abx. Dispo: pending. Possibly tomorrow but would like to observe further at least overnight given difficult surgery and course. S: pain much better. no nausea. passing gas. smiling. O: alert, nad no jaundice no wob rrr abd soft, inc cdi 06/01/18 09:33 Objective: Vital Signs Temp Pulse Resp BP Pulse Ox 37.0 C 83 20 102/60 92 06/01/18 07:16 06/01/18 07:16 06/01/18 07:16 06/01/18 07:16 06/01/18 07:16 Laboratory Results 06/01/18 04:58 05/28/18 04:39 05/31/18 06/01/18 06/02/18 05:59 05:59 05:59 Intake Total 2200 Output Total 25 Balance 2175 ICD10 Worksheet Patient Problems: Problems Problem Status Onset Abdominal pain Acute
[2018-06-01] MEDS: KETOROLAC 15 MG/1 ML SDV IVP SCH ×4 (10:45→23:27)
--- NOTE | 2018-06-01 12:28 | ASMTCMCOM ---
CM Note CM Note Notes: Spoke w/RN, pt revovering after ECRP induced pancreatitis, ambulates independently. Anticipate will dc home w/support of when medically stable. CM available for any changes. DC Plan: Independent Date Signed: 06/01/2018 12:28 PM Electronically Signed By:Munira Moctezuma RN
--- NOTE | 2018-06-01 13:56 | SOAPPROG ---
SOKATIE Progress Note Assessment/Plan: Assessment:Plan: s/p Lap debbie, pancreatitis resolved she is doing well with less pain, advancing diet encourage incentive spirometer plan as per surgery 06/01/18 13:55 Subjective: Cc- CBD stone removed with ERCp, post ERCp psancreatitis resolved, s/p lap debbie She is feeling better with less pain tolerating liquids advancing to low fat using less pain meds Objective: Vital Signs Temp Pulse Resp BP Pulse Ox 36.8 C 73 18 99/60 L 93 06/01/18 12:00 06/01/18 12:00 06/01/18 12:00 06/01/18 12:00 06/01/18 12:00 Laboratory Results 06/01/18 04:58 05/28/18 04:39 05/31/18 06/01/18 06/02/18 05:59 05:59 05:59 Intake Total 2200 Output Total 25 Balance 2175 A+Ox3 decreased breath sounds, no ,rhonchi S1s2 +BS, decreased soft but tender no rebound or guarding ICD10 Worksheet Patient Problems: Problems Problem Status Onset Abdominal pain Acute
[2018-06-01] MEDS: HYDROCODONE/APAP 5/325 TAB PO PRN (21:57)
--- NOTE | 2018-06-01 22:26 | HOSPPROG ---
Hospitalist Progress Note Assessment/Plan: Cholelithiasis/cholecystitis - s/p lap cholecystectomy POD #1 Choledocholithiasis, s/p ERCP w/ sphincterotomy/stone removal Acute pancreatitis, resolved Abd pain, 2/2 above Cough, malaise Atelectasis Anemia, stable Medication adverse effect -Prn analgesia, antiemetics. -ISU as tolerated (deep breaths worsen abd pain). -Ambulate. -check a.m. Labs -Plan for DC tomorrow. Subjective: Feeling somewhat better today-- better than she did after ERCP. Objective: General: The patient is a female who is awake and in no acute distress. HEENT: normocephalic, extraocular movements intact, conjunctivae clear, no lesions on face. Mucous membranes moist. Neck: trachea midline, no visible masses, no external lesions. Abd: soft and nondistended. Musculoskeletal: Normal muscle tone and bulk Psych: appropriate mood/affect. Skin: No pallor. HIDA scan - mild filling GB w/ morphine. US RUQ - no gallstones. ERCP - reviewed. Lipase- nl. Objective: Vital Signs Temp Pulse Resp BP Pulse Ox 37.1 C 84 16 115/73 96 06/01/18 19:42 06/01/18 19:42 06/01/18 19:42 06/01/18 19:42 06/01/18 19:42 Laboratory Results 06/01/18 04:58 05/28/18 04:39 05/31/18 06/01/18 06/02/18 05:59 05:59 05:59 Intake Total 2200 Output Total 25 Balance 2175 ICD10 Worksheet Patient Problems: Problems Problem Status Onset Abdominal pain Acute
[2018-06-01] MEDS: MELATONIN 3 MG TAB PO PRN (23:51)
[2018-06-02] MEDS: HYDROCODONE/APAP 5/325 TAB PO PRN (04:34)
[2018-06-02] MEDS: KETOROLAC 15 MG/1 ML SDV IVP SCH ×2 (05:28→11:54)
[2018-06-02] MEDS: PIPERACILLIN/TAZO 3.375 GM/DEX 50 ML IV SCH ×2 (05:28→11:54)
[2018-06-02 05:43] LABS: PLATELET COUNT 499 10^3/uL (150-400)
[2018-06-02] MEDS: CYCLOBENZAPRINE 10 MG TAB PO SCH (07:36)
--- NOTE | 2018-06-02 08:46 | SOAPPROG ---
CLARISSA Progress Note Assessment/Plan: Assessment: 48yo F c gallstone panc, choledocholithiasis, cholecystitis - VSS, no longer tachy - pain is controlled - tolerating regular diet, having diarrhea - abdomen is soft, nondistended and appropriately tender - ok with dc home. Needs to go slow with activity and diet but has made a lot of progress in the last 2 days Plan: 06/02/18 08:45 Subjective: feels well, tolerating regular diet, having bowel function Objective: Vital Signs Temp Pulse Resp BP Pulse Ox 36.7 C 59 L 14 130/79 H 95 06/02/18 04:00 06/02/18 04:00 06/02/18 04:00 06/02/18 04:00 06/02/18 04:00 Laboratory Results 06/02/18 05:18 05/28/18 04:39 06/01/18 06/02/18 06/03/18 05:59 05:59 05:59 Intake Total 2200 350 Output Total 25 Balance 2175 350 ICD10 Worksheet Patient Problems: Problems Problem Status Onset Abdominal pain Acute
--- NOTE | 2018-06-02 09:37 | GOP ---
DATE OF OPERATION: 05/31/2018 SURGEON: David Abdi MD OUTSIDE SALESPERSON: Derek Irvin MD. ANESTHESIA: General endotracheal. ANESTHESIOLOGIST: Dr. Greenwood. PREOPERATIVE DIAGNOSIS: Gallstone pancreatitis and cholecystitis. POSTOPERATIVE DIAGNOSIS: Gallstone pancreatitis and cholecystitis. PROCEDURE PERFORMED: Laparoscopic cholecystectomy. FINDINGS: Significant amount of abdominal inflammation secondary to both cholecystitis and pancreati tis. I was able to successfully elevate the gallbladder and perform a fairly straightforward laparos copic cholecystectomy. SPECIMENS: Gallbladder. ESTIMATED BLOOD LOSS: 10 cc. DESCRIPTION OF PROCEDURE: In detail, the patient was greeted in the preoperative suite. Once again, risks, benefits, and alternatives were discussed. Consent was signed. She was then brought back to the operative suite, placed on the OR table in supine position. After all anesthesia machines inclu ding SCDs were on and functioning, [facility] time-out was performed. After successfu l induction of general anesthesia, the patient's abdomen was prepped and draped in typical sterile fa shion. Given her abdominal distention, I elected to enter the abdomen via an infraumbilical cutdown, made an infraumbilical incision. I carried this down. I grasped the umbilical stalk with a penetrating tow el clamp and elevated the inferior fascia. I dissected sharply through the fascia and bluntly entere d the abdomen. Once successfully in the abdomen, I inserted a 12 mm trocar, insufflated the belly. The belly really only distended, minimally. I placed 3 additional 5 mm trocars, 1 in the subxiphoid, 2 in the right upper quadrant all under direct visualization. There were some omental adhesions to the abdominal wall and the edge of the liver which were successfully taken down bluntly. I was able then to successfully retract the gallbladder over the liver edge and elevate it cranially. I turned my attention toward the infundibulum where there was a significant amount of inflammation. Using a c ombination of electrocautery and blunt dissection, I was able to identify 2, and only 2, structures l eading toward the gallbladder. Prior to transecting these, I elected to take the remainder of the ga llbladder off the liver bed to ensure that there were no other significant structures in my critical view. I then took the gallbladder off the liver bed using electrocautery. Once skeletonized, it was only attached via the cystic duct and cystic artery. I first doubly clamped the cystic artery using hemoclips and divided it. The cystic duct was somewhat enlarged, and the hemoclip was not sufficien t. Using a PDS Endoloop, I successfully tied off the distal cystic duct and transected the cystic du ct. The specimen was then removed via the infraumbilical incision, which needed to be extended about another 2 cm given the size of the gallbladder and its being full of stones. I, then, re-insufflate d the belly. I turned my attention toward the right upper quadrant. My stitch and clips were intact and hemostatic. I irrigated the right upper quadrant with a L of sterile saline noting clear efflue nt in the suction canister. I saw no spilled stones within the abdominal cavity. I, then, evacuated my pneumoperitoneum. I closed my infraumbilical fascia with a running 0 Vicryl stitch. The skin wa s then closed for all sites with Monocryl. Dermabond was placed. The patient was then extubated in the operative suite, and taken to the PACU in satisfactory condition. DRAINS: None. COUNTS: All counts were reported as correct x2. /[id number]/MODL
--- NOTE | 2018-06-02 10:02 | HOSPPROG ---
Hospitalist Progress Note Assessment/Plan: 48 yo F w gallstone pancreatitis, cholecystitis and choledocholithiasis choledocholithiasis: s/p ercp cholecystitis: s/p lap debbie gallstone pancreatitis: resolved see above transaminitis: improving AHRF: atelectasis dispo: likley home today > 30 minutes on dc Subjective: case dw/ dr golden Objective: Vital Signs Temp Pulse Resp BP Pulse Ox 36.4 C 58 L 16 117/54 L 95 06/02/18 08:00 06/02/18 08:00 06/02/18 08:00 06/02/18 08:00 06/02/18 08:00 Laboratory Results 06/02/18 05:18 05/28/18 04:39 06/01/18 06/02/18 06/03/18 05:59 05:59 05:59 Intake Total 2200 350 Output Total 25 Balance 2175 350 - Physical Exam Constitutional: no apparent distress, appears nourished Eyes: PERRL, anicteric sclera Ears, Nose, Mouth, Throat: moist mucous membranes, hearing normal Cardiovascular: regular rate and rhythym, no murmur, rub, or gallop Respiratory: no respiratory distress, no rales or rhonchi Gastrointestinal: normoactive bowel sounds, soft, non-tender abdomen Genitourinary: no bladder fullness, No barker in urethra Skin: warm, normal color Musculoskeletal: full muscle strength, no muscle tenderness Neurologic: AAOx3 ICD10 Worksheet Patient Problems: Problems Problem Status Onset Abdominal pain Acute
[2018-06-02 12:02] VITALS: BP 144/77
--- NOTE | 2018-06-07 04:53 | GCON ---
DATE OF CONSULTATION: 05/26/2018 HISTORY OF PRESENT ILLNESS: The patient is a 48-year-old female who was admitted with abdominal pain, elevated LFTs, and normal lipase. She was found to have choledocholithiasis and underwent ERCP. I was consulted now for further care about her cholelithiasis and cholecystitis. After ERCP she has developed significant pancreatitis with a lipase up to 13,000. However, it has come down to 5000. Her LFTs are improving as well. She still is quite tender in the right upper quadrant, was palpable fullness and thickness suggesting acute cholecystitis as well as pancreatitis after ERCP. ALLERGIES: Erythromycin. MEDICATIONS: Flonase. PAST MEDICAL HISTORY: Reveals no major surgeries or hospitalizations or serious illnesses. FAMILY HISTORY: Noncontributory. REVIEW OF SYSTEMS: Reveals no major findings except as related to the HPI. SOCIAL HISTORY: Reveals she is a nonsmoker. PHYSICAL EXAMINATION: GENERAL: Reveals an alert 48-year-old female who is in no acute distress. VITAL SIGNS: She is afebrile. HEAD AND NECK: Exam reveals a no residual icterus. No adenopathy. No oral lesions. Neck is supple , nontender, without bruits, or thyromegaly. CHEST: Clear without evidence of effusions. CARDIAC: Exam was a regular rhythm without tachycardia. ABDOMEN: Soft, slightly distended with decreased bowel sounds. She is very tender in the right upper quadrant with a fullness suggesting a palpable gallbladder. She has some tenderness in the epigastrium as well. There are no obvious hernias. Extremities are benign, full range of motion, full pulses. NEUROLOGIC : Exam was physiologic. PSYCHIATRIC: Exam reveals her to be cooperative, alert, and oriented. IMPRESSION: 1. Post endoscopic retrograde cholangiopancreatography pancreatitis. 2. Cholelithiasis and acute cholecystitis status post choledocholithiasis. RECOMMENDATIONS: Continued medical support as her lipase numbers return to normal, but she should be ready for laparoscopic cholecystectomy in 1-2 days as her numbers are trending down rapidly. The ERCP pancreatitis is usually short- lived with a rapid improvement; although, not always. I think her persistent present right upper quadrant pain is from hydrops of her gallbladder and cholelithiasis. Risks and options were fully discussed with the patient and her , who were somewhat hesitant to proceed with surgery. /[id number]/MODL MTDD
--- NOTE | 2018-06-07 18:17 | GDS ---
DISCHARGE DIAGNOSES: 1. Cholelithiasis, status post cholecystectomy. 2. Choledocholithiasis, status post endoscopic retrograde cholangiopancreatography. 3. Gallstone pancreatitis. CONSULTS: Gastroenterology and General Surgery. Please see admission history and physical by Dr. Xavier Espinoza. The patient presented in the early hours of the with abdominal pain and flank pain, been going on for a few days. She has bennett d abnormal LFTs and imaging consistent with acute cholecystitis. There was suspected choledocholithi asis. She underwent ERCP on the first hospital day showing a moderately large CBD stone, which was c rushed and removed. She was pulled off antibiotics for a number of days but continued to have sympto ms, so she had a laparoscopic cholecystectomy that was relatively unremarkable. Her LFTs did improve while she was here. She was discharged home to complete a course of antibiotics . /[id number]/MODL
--- NOTE | 2018-06-08 07:09 | PQFORM ---
PHYSICIAN QUERY FORM Needs Your Response This query form is being sent to you to assure this patient record is coded properly. Please respond to the question below: ELECTRICAL INSTALLER QUESTION: Dear Dr. Miller, This patient had some dyspnea, cough, malaise, atelectasis, and effusions documented by you (on 06/02 PN) and Dr. Koo (on 05/28 PN). Both of these notes attribute these findings to acute hypoxic respiratory failure. Based on this documentation and your professional judgment, can this be further defined and added to the discharge summary as?: acute hypoxic respiratory failure due to atelectasis and pleural effusions ____X____ acute hypoxic respiratory failure due to atelectasis atelectasis and pleural effusions atelectasis only pleural effusion only Other Unable to determine Thank you for clarifying, BENIGNO Matute HIM Coding INSTRUCTIONS FOR RESPONSE: Answer question by clicking on the "Edit Document" button. Move cursor to area below the stars. When complete, hit "Save." Click on the "Sign" button, then click "Sign" again. Type in your PIN and hit "Enter." MTDD
== END 2018-06-02 14:41 | disposition home or self-care (01) | DRG 417 ==
LOC: F3E 05-24 02:50 → OBSVTOIN 05-25 11:21
PROVIDERS: ADMIT Student in an Organized Health Care Education/Training Program; ATTEND Internal Medicine
PROC: 0FC98ZZ Extirpation of Matter from Common Bile Duct, Via Natural or Artificial Opening Endoscopic (ICD-10-PCS; 2018-05-24)
PROC: 0FT44ZZ Resection of Gallbladder, Percutaneous Endoscopic Approach (ICD-10-PCS; principal; 2018-05-31 12:45)
DX: K85.10 Biliary acute pancreatitis without necrosis or infection (principal); K80.64 Calculus of gallbladder and bile duct with chronic cholecystitis without obstruction; K91.89 Other postprocedural complications and disorders of digestive system; J96.01 Acute respiratory failure with hypoxia; J98.11 Atelectasis; R44.3 Hallucinations, unspecified; T42.4X5A Adverse effect of benzodiazepines, initial encounter; S33.5XXA Sprain of ligaments of lumbar spine, initial encounter; X50.9XXA Other and unspecified overexertion or strenuous movements or postures, initial encounter; Y92.230 Patient room in hospital as the place of occurrence of the external cause; K56.7 Ileus, unspecified; D64.9 Anemia, unspecified
CPT/HCPCS: 96374; A9537; G0378; J0295; J0694; J1100; J1170; J1335; J1610; J1885; J2001; J2060; J2250; J2270; J2405; J2543; J2704; J2710; J3010; Q9961; Q9967

== ENCOUNTER → 2019-01-06 | Outpatient (CLI) | payer OTHER | LOC: BMCIMAGING 10:05 ==